=== PATIENT | female | born 1965 | race Caucasian/White ===

== ENCOUNTER 2017-09-17 10:49 | Inpatient (IN) | payer OTHER ==
[~2017-09-17] VITALS: Ht 172.7 cm; Wt 99.8 kg
[~2017-09-17 10:49] MED LIST: ALEVE220 MG PO; AMARYL2 MG PO; ASPIR 8181 MG PO; CLONAZEPAM 1 MG1 M1 PO; EFFIENT10 MG PO; GEMFIBROZIL 60600 MG PO; IBUPROFEN 800800 M1 PO; IMDUR 30 MG TAB30 M1 PO; LIPITOR 20 MG T20 M1 PO; LISINOPRIL20 MG PO; METFORMIN HCL500 MG PO; NEURONTIN 300300 M1 PO; PROBIOTIC250 MG PO
[2017-09-17 10:52] VITALS: BP 171/88
[2017-09-17] MEDS ORDERED: PLAVIX 75 MG TA75 MG PO (11:07)
[2017-09-17] MEDS ORDERED: GEMFIBROZIL 60600 MG PO (11:08)
[2017-09-17 11:09] LABS: ABSOLUTE BASOPHILS 0.1 thou/uL (0.0-0.2); ABSOLUTE EOSINOPHILS 0.2 thou/uL (0.0-0.7); ABSOLUTE LYMPHOCYTES 2.1 thou/uL (0.8-5.3); ABSOLUTE MONOCYTES 0.4 thou/uL (0.0-1.2); ABSOLUTE NEUTROPHILS 3.9 thou/uL (1.6-8.1); BASOPHILS 0.9 %; EOSINOPHILS 2.5 %; HEMATOCRIT 39.5 % (37.0-47.0); HEMOGLOBIN 12.8 gm/dL (12.0-15.0); LYMPHOCYTES 32.3 %; MCH 26.2 pg (26.0-34.0); MCHC 32.3 g/dL (28.0-37.0); MONOCYTES 5.5 %; NUCLEATED RBCS 0 /100WBC; PLATELET COUNT* 278 thou/uL (150-400); POLYS 58.8 %; RBC 4.88 mil/uL (4.20-5.00); WBC 6.6 thou/uL (4.0-11.0)
[2017-09-17] MEDS ORDERED: LIVALO2 MG PO (11:10)
[2017-09-17 11:18] LABS: ANION GAP 8 mmol/L (7-16); BUN 11 mg/dL (7-18); CHLORIDE 102 mmol/L (98-107); CO2 28 mmol/L (21-32); CREATININE 0.7 mg/dL (0.6-1.3); GLUCOSE 231 mg/dL (70-99); SODIUM 138 mmol/L (136-145)
--- NOTE | 2017-09-17 11:25 | NUR ---
2ND NITRO GIVEN PAIN STILL 01/24 BP 171/88
[2017-09-17 11:29] LABS: ALBUMIN 3.8 g/dL (3.4-5.0); ALKALINE PHOSPHATASE 68 U/L (46-116); LIPASE 174 U/L (73-393); MAGNESIUM 1.7 mg/dL (1.8-2.4); NT-PRO BRAIN NAT PEPTIDE 13 pg/mL (<300); SGOT 21 U/L (15-37); SGPT 28 U/L (30-65); TOTAL BILIRUBIN 0.2 mg/dL (<0.1-1.0); TOTAL PROTEIN 7.5 g/dL (6.4-8.2); TROPONIN-I LEVEL <0.06 ng/mL (<0.06)
[2017-09-17 13:07] VITALS: BP 143/89
--- NOTE | 2017-09-17 14:00 | NUR ---
RECEIVED REPORT FROM LULU IN ER. PT TRANSFERED UP TO TELE AT 1320. PT A&O X4. O2 SAT 97% ON 2L PER NC. REFRIGERATOR REPAIR TECHNICIAN PLACED AND TRACING SR. MORALES PRITNED AND PLACED IN CHART. IV SALINE LOCKED. ADMISSION HISTORY, EDUCATION, AND ASSESSMENT COMPLETED CHARTED. PT ORIENTED TO ROOM, BED, AND CALL LIGHT. PT ABLE TO BE UP AD BLAYNE TO THE BATHROOM, GAIT IS STEADY AND COORDINATED. PT REPORTS CHEST HEAVINESS 09/26. PT SEEN BY CARDIOLOGY AND HOSPITALIST. PLAN IS TO HAVE A CARDIAC CATH TOMORROW. PT INFORMED AND COMMUNICATES UNDERSTANDING. AT BEDSIDE UPON ADMIT BUT HAS SINCE LEFT. WILL RETURN WITH UPDATED MED LIST FOR CHART. LOW FALL RISK PRECAUTIONS IN PLACE. FALL AGREEMENT SIGNED. CALL LIGHT IS WITHIN REACH. WILL CONTINUE TO MONITOR.
[2017-09-17 15:52] VITALS: BP 119/84
--- NOTE | 2017-09-17 19:48 | NUR ---
VSS. O2 SAT REMAINS >90% ON ROOM AIR, TITRATED OFF 2L. GIFT BASKET PACKER IN PLACE TRACING SR WITH 1 DEGREE. PT TO HAVE CARDIAC CATH TOMORROW PER DR PLASCENCIA. PT TO BE NPO AFTER MIDNIGHT. IV SALINE LOCKED. PT STATES THAT CHEST PAIN HAS REMAINED A 1/10 SINCE ADMIT. NITRO PASTE ADMINISTERED. PT UP AD BLAYNE IN ROOM, AT BEDSIDE. PT EATING AND DRINKING WITHOUT ISSUE. LOW FALL RISK PRECAUTIONS IN PLACE. CALL LIGHT IS WITHIN REACH. HOURLY ROUNDING PERFORMED.
[2017-09-17 20:00] VITALS: BP 121/82
[2017-09-17] MEDS ORDERED: CELEXA10 MG PO (23:32)
[2017-09-18] VITALS (14 sets, daily range): BP systolic 103–120; BP diastolic 55–73
[2017-09-18 04:10] LABS: HEMATOCRIT 39.7 % (37.0-47.0); HEMOGLOBIN 12.8 gm/dL (12.0-15.0); MCHC 32.2 g/dL (28.0-37.0); MCV 80.8 fL (80.0-100.0); RBC 4.92 mil/uL (4.20-5.00); RDW-CV 16.9 % (10.5-14.5); WBC 7.3 thou/uL (4.0-11.0)
[2017-09-18 04:24] LABS: ANION GAP 8 mmol/L (7-16); BUN 10 mg/dL (7-18); CALCIUM 9.1 mg/dL (8.5-10.1); CHLORIDE 104 mmol/L (98-107); CHOLESTEROL 184 mg/dL (<200); CO2 29 mmol/L (21-32); CREATININE 0.6 mg/dL (0.6-1.3); GLUCOSE 114 mg/dL (70-99); HDL CHOLESTEROL 29 mg/dL (>40); LDL CHOLESTEROL 120 mg/dL (<100); MAGNESIUM 1.9 mg/dL (1.8-2.4); POTASSIUM 4.8 mmol/L (3.5-5.1); SODIUM 141 mmol/L (136-145); TC:HDL 6.3 Ratio (Not establshd); TRIGLYCERIDE 178 mg/dL (<150); VLDL 36 mg/dL (<40)
[2017-09-18 04:26] LABS: SERUM ASSESSMENT Clear
--- NOTE | 2017-09-18 05:05 | NUR ---
ASSUMED PT CARE AT 1930, PT IS A&OX4, PT TRACING NSR ON THE MONITOR, PT DENIES ANY PAIN OR NEEDS THIS SHIFT. PT IS ON RA SATTING MID TO HIGH 90'S. PER DAY RN PT IS TO HAVE A CARDIAC CATH TODAY, PT HAS BEEN NPO SINCE 0000. PT IS UP AD BLAYNE IN HER ROOM, STABLE ON HER FEET. BED IN LOW POSITION, CALL LIGHT IN REACH, HOURLY ROUNDING COMPLETED FOR PT SAFETY.
--- NOTE | 2017-09-18 09:19 | CON ---
[address] [address] CONSULTATION Name: BIANKA LIM Room: [address] IN ..#: [id number] Admission: 09/17/17 Attend Phys: Gautam Kennedy MD Discharge: Date of : 69 Report #: [id number] THIS REPORT FOR: //name// CC: Gautam Martin [facility] DATE OF SERVICE: 09/17/2017 HISTORY OF PRESENT ILLNESS: The patient is a 52-year-old white female who I was asked to see in the hospital today after she complained of chest pain. The patient initially saw my partner, Dr. Wheeler back in November 2015. At that time, she complained of chest pain and shortness of breath. He performed a cardiac catheterization that showed an 80% stenosis and a 75% stenosis in the LAD. The circumflex and right coronary had no significant disease. There was normal left ventricular function. He then placed 2 drug-eluting stents in the LAD. She tolerated the procedure well. She was actually discharged on Effient. She then presented again 6 months later in May 2016 with an episode of chest heaviness. Dr. Wheeler again saw her in consultation. He performed a repeat cardiac catheterization in May 2016. The results showed a 90% stenosis in the LAD between the 2 stents. The circumflex and right coronary had no significant disease. He then placed a new drug-eluting stent in the mid LAD. She has done well since that time. However, she notes for the past several days, she has had intermittent chest heaviness. It is not related to activity or meals. It currently radiates into her left arm. It can last for several minutes and goes away. There is no associated nausea, but it does make her somewhat diaphoretic and short of breath. She denies the pain being related to food. She has had no fever, cough, blood in her stool. She denied any trauma to her chest or rash. She denies exertional dyspnea, palpitations, syncope, or peripheral edema. She came to the emergency room today and was admitted. PAST MEDICAL HISTORY: Otherwise significant for hysterectomy, hernia repair, back surgery, hypertension, diabetes, and hyperlipidemia. CURRENT MEDICATIONS: Consists of aspirin, lisinopril, Imdur, Neurontin, metformin, Amaryl, gemfibrozil, clopidogrel, and pitavastatin. ALLERGIES: She has an intolerance to ACETAMINOPHEN. FAMILY HISTORY: Her father had coronary artery bypass surgery. SOCIAL HISTORY: She is . She and her live in [place], [place]. 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 [place] [address] CONSULTATION Name: BIANKA LIM Room: [address] IN [facility]#: [id number] Admission: 09/17/17 Attend Phys: Gautam Kennedy MD Discharge: Date of : 69 Report #: [id number] REVIEW OF SYSTEMS: She has had no history of stroke, asthma, or peptic ulcer disease. She has been diagnosed with fatty liver in the past based liver biopsy. No history of kidney disease, cancer, psychiatric illness, or chronic skin condition. PHYSICAL EXAMINATION: GENERAL: Revealed a middle-aged female, appeared in no acute distress. VITAL SIGNS: She had a blood pressure of 140/80, pulse is 80. She was afebrile. HEENT: She is anicteric. Conjunctivae are pink. Mucous membranes are moist. NECK: Veins do not appear distended. No carotid bruits. Neck is supple. CHEST: Clear to auscultation. HEART: Regular rate and rhythm. No murmur. ABDOMEN: Obese, soft, and nontender. EXTREMITIES: Had no edema. Dorsalis pedis pulse 1+ bilaterally. SKIN: Cool and dry. NEUROLOGIC: Nonfocal. LYMPH: No adenopathy. MUSCULOSKELETAL: No joint effusion. Her ECG in the emergency room today showed a normal sinus rhythm. There was no ST or T-wave change. Her workup in the emergency room, she had a portable chest x-ray that showed normal heart size, clear lung colon. LAB WORK: Sodium 138, creatinine 0.7, glucose 231. Liver function studies were normal. Troponin 0.06. Her hemoglobin 12.8. IMPRESSION AND RECOMMENDATIONS: 1. Possible unstable angina. Recommend repeat cardiac catheterization. 2. Hypertension. The patient is on an WAN inhibitor. 3. Hyperlipidemia. The patient is on a statin drug and gemfibrozil. <ELECTRONICALLY SIGNED> By: Edwin Britt MD, [facility] 09/18/17 0919 1350 1727Daviservando Britt MD, FAC /nt
--- NOTE | 2017-09-18 10:45 | NUR ---
ASSUMED CARE OF PATIENT THIS AM AT 0730. PATIENT IS ALERT AND ORIENTED X 4. SHE DENIES ANY CHEST PAIN THIS AM. PLANS FOR POSSIBLE CARDIAC CATH TODAY. TELE SHOWS NSR. WILL CONTINUE TO MONITOR PATIENT COMFORT. NO FALLS OR INJURY.
[2017-09-18 11:32] LABS: CALCIUM 9.5 mg/dL (8.5-10.1); CREATININE 0.7 mg/dL (0.6-1.3); POTASSIUM 4.2 mmol/L (3.5-5.1)
[2017-09-18 11:34] LABS: APTT 30.3 Seconds (25.0-31.3); INR 1.1; PROTIME 10.7 Seconds (9.20-11.50)
--- NOTE | 2017-09-18 13:09 | EKG ---
[place] [address] ELECTROCARDIOGRAM REPORT Name: BIANKA LIM Room: [address] ADM IN .R.#: [id number] Admission: 09/17/17 Attend Phys: Gautam Kennedy MD Discharge: Date of : 69 Report #: [id number] THIS REPORT FOR: //name// [facility] ED Test Date: 2017-09-17 Test Time: 10:53:33 Pat Name: BIANKA ILM Department: Room: [facility] Gender: F Cash Surrender Calculator: JAVAN : 1965 Requested By: Felix Erazo Order Number: [id number] MD: Eric Montes Measurements Intervals [place] Rate: 69 P: 0 [place]: 197 QRS: -9 QRSD: 96 T: 15 QT: 402 QTc: 425 Interpretive Statements Sinus rhythm Inferior infarct, old Compared to ECG 02/27/2017 12:39:38 First degree AV block no longer present Myocardial infarct finding still present Electronically Signed On 09-18-2017 13:09:01 FENCE SETTER by Eric Montes [email or web address] <ELECTRONICALLY SIGNED> By: Eric Montes MD, FAC 09/18/17 1309 1053 1053 Eric Montes MD, [facility] /EPI
--- NOTE | 2017-09-18 14:58 | NUR ---
MET WITH PT TO DISCUSS HOME SITUATION/DC PLANNING. PT LIVES WITH SPOUSE. SHE WORKS AND IS INDEPENDENT AND ACTIVE. USES NO EQUIPMENT AND HASN'T HAD HH. PT TO HAVE CARDIAC CATH TODAY. DENIES ANY DC NEEDS. WILL FOLLOW
--- NOTE | 2017-09-18 22:16 | NUR ---
AT SHIFT START PATIENT OFF UNIT REPORTEDLY AT [facility] PATIENT RETURNED TO UNIT AT APPROX 2034 TWO RNS TRANSPORTED RECEIVED REPORT AT BEDSIDE POST CATH VITALS ON HOURLY PORTION; 4X4 WITH TRANSPARENT DRESSING TO R GROIN C/D/I SITE WITHOUT S/SX OF WARMTH BRUISING OR REDNESS PATIENT AND SPOUSE DENY CONCERNS AND STATES UNDERSTANDING REGARDING MOBILITY RESTRICTIONS WILL CONTINUE TO MONITOR
[2017-09-19] VITALS (9 sets, daily range): BP systolic 106–125; BP diastolic 54–71
--- NOTE | 2017-09-19 09:36 | NUR ---
ASSUMED PT CARE AT 0730, FULL ASSESMENT DONE CHARTED.PT A/O X4, UP AD BLAYNE IN ROOM. PT DENIES CHEST PAIN. POST CATH 09/18/17. RIGHT GROIN SOFT, SMALL AMOUT BRUISING. PT EATING WELL, HOPING TO GO HOME TODAY. USING CALL LIGHT APPROPRIALTY. WILL CONTINUE WITH PLAN OF CARE.
[2017-09-19] MEDS ORDERED: ZETIA10 MG PO (10:29)
[2017-09-19] MEDS ORDERED: NITROSTAT0.4 M1 SUBLING (10:29)
--- NOTE | 2017-09-21 11:59 | CARD ---
[address] [address] CARDIAC CATH REPORT Name: LIM,CHANNIKA Ceja Room: [address] IN [facility].#: [id number] Admission: 09/17/17 Attend Phys: Gautam Kennedy MD Discharge: 09/19/17 Date of : 69 Report #: [id number] THIS REPORT FOR: //name// APPROVED REPORT Patient Details Patient Status: In-Patient Room #: 232 The patient is a 52 year-old female Event Personnel Eric Montes Partition Assembly Machine Operator, Sulma Lynn RN Financial Accounting Analyst, Yoan Farr (R) Monitor, Vicky Porter Holkins, John Pathology Lab Technician Procedures Performed CARON Place w/wo Plasty Single LAD Indication Unstable angina Risk Factors Hypercholesterolemia, Diabetes Previous Procedures/Diagnoses Previous PCI Admission/Lab Medications/Medications given during procedure Aspirin, Platelet Aff. Inhib., Heparin Unfract., , Procedure Narrative The patient was brought urgently to the Cardiac Catheterization Laboratory and was prepped and draped in a sterile manner. The right femoral was infiltrated with 1% Lidocaine subcutaneous anesthesia. A [place] 6 FR sheath was inserted into the Right Femoral Artery. Coronary angiography was performed using coronary diagnostic catheters. The right coronary system was accessed and visualized with a Diagnostic catheter. The left coronary system was accessed and visualized with a Diagnostic catheter. The left ventricle was accessed and visualized with a Diagnostic catheter. Left ventricular/Aortic Valve gradient assessed via catheter pullback. Pre-demployment femoral angiogram was performed . Hemostasis was obtained with manual pressure following sheath removal without any complications. The patient tolerated the procedure well and there were no complications associated with the procedure. [place] [address] CARDIAC CATH REPORT Name: BIANKA LIM Room: [address]#: [id number] Admission: 09/17/17 Attend Phys: Gautam Kennedy MD Discharge: 09/19/17 Date of : 69 Report #: [id number] Intraoperative Conscious Sedation Sedation start time: 16:07 Case end Time: 15:23 Fentanyl 100 mcg Versed 3 mg Fluoro Time: 15.4 minutes Dose: DAP [id number] cGycm2 2309 mGy Contrast Type and Amount: Visipaque 305 ml Diagnostic Cath Left Main 0% narrowing LAD Patent proximal and mid LAD stents with 75% narrowing between the stented portions with diffuse 70-90% apical LAD narrowing Circumflex 30% mid with 40% distal narrowing Right Coronary Dominant vessel with proximal catheter-induced spasm remitting after infusion of intracoronary nitroglycerin; there was 30% distal right coronary narrowing Left Ventriculography The left ventricle is normal in size with normal contractility. The left ventricular ejection fraction is estimated to be 60%. There is no mitral insufficiency. IVUS Anticoagulation was achieved with Heparin. Fractional Flow [place] was performed on the mid LAD vessel. A 6 Welsh XB LAD 3.5 Guide Catheter was used to engage the left ostium. A 014 FloWire Interventional Guidewire was used. IVUS Findings Fractional flow reserve was 0.77 distal to the unstented mid LAD segment after adenosine provocation. Hemodynamics The aortic pressure is 130/74 mmHg with a mean of 78 mmHg. The left ventricular pressure is 114/0 mmHg with a mean of mmHg. The left ventricular end diastolic pressure is 4 mmHg. PCI Technique Lesion Anticoagulation was achieved with Heparin. Patient was preloaded with Heparin IV 7000 units. Percutaneous coronary intervention was performed on the mid left anterior descending artery segment. A 6F XB LAD 3.5 Guide Catheter was used to engage the ostium. A Pressure Wire 175cm Interventional Guidewire was used [place] [address] CARDIAC CATH REPORT Name: BIANKA LIM Room: [address]#: [id number] Admission: 09/17/17 Attend Phys: Gautam Kennedy MD Discharge: 09/19/17 Date of : 69 Report #: [id number] BALLOON DILATION A Balloon catheter Trek RX 2.5 X 12 was inserted and inflated up to 10.00atm for 13seconds. Repeat angiography revealed the following post-dilatation results: 20% residual narrowing. STENT DEPLOYMENT A drug-eluting stent Xience Alpine RX 2.5X15 was inserted and inflated up to 10.00atm for 15seconds. Additional Inflation: 12.00atm for 12seconds. Additional Inflation: 14.00atm for 14seconds. Final angiography reveals 0 % stenosis with YOSI 3 flow. PCI Technique Lesion The lesion stenosis prior to intervention was mid LAD% with YOSI 6 Welsh XB LAD 3.5 flow. A left Guide Catheter was used to engage the 014 FloWire ostium. BALLOON DILATION A Balloon catheter Fractional flow reserve was 0.77 distal to the unstented mid LAD segment after adenosine provocation. was inserted and inflated up to humaira for seconds. Conclusion #1 significant coronary artery disease characterized by the following : A widely patent proximal and mid LAD stents with 75% narrowing between the stented portions with diffuse 70-90% apical LAD disease, B 30% mid with 40% distal circumflex narrowing, this being a nondominant vessel, C large dominant right coronary artery with proximal catheter-induced spasm remitting after infusion of intracoronary nitroglycerin, #2 normal left ventricular systolic function, estimated ejection fraction being 60%, #3 fractional flow reserve calculated pertinent to the mid LAD stenosis with a minimum value of .77 after adenosine provocation, suggesting hemodynamic significance, #4 successful percutaneous coronary intervention with deployment of drug-eluting stent at the site of 75% mid LAD stenosis with 0% [place] [address] CARDIAC CATH REPORT Name: BIANKA LIM Room: [address]#: [id number] Admission: 09/17/17 Attend Phys: Gautam Kennedy MD Discharge: 09/19/17 Date of : 69 Report #: [id number] residual involving stent deployment and YOSI-3 flow the distal vessel. Recommendations Cardiac Risk Reduction Program Aggressive Medical Therapy Medications Administered Aspirin (any) Clopidogrel <ELECTRONICALLY SIGNED> By: Moe Wheeler MD, FAC 09/21/17 1159 1159 1159Moe Wheeler MD, FAC /INF
== END 2017-09-19 12:20 | disposition home or self-care (01) | DRG 287 ==
LOC: M.ERS 10:49 → M.2W 12:23 → M.TBA-ER 12:23 → M.2W 13:17
PROVIDERS: Emergency Medicine Emergency Medical Services; Internal Medicine Cardiovascular Disease; ADMIT Internal Medicine
PROC: 4A023N8 Measurement of Cardiac Sampling and Pressure, Bilateral, Percutaneous Approach (ICD-10-PCS; principal; 2017-09-18)
PROC: B2151ZZ Fluoroscopy of Left Heart using Low Osmolar Contrast (ICD-10-PCS; principal; 2017-09-18)
PROC: B2111ZZ Fluoroscopy of Multiple Coronary Arteries using Low Osmolar Contrast (ICD-10-PCS; principal; 2017-09-18)
DX: I25.110 Atherosclerotic heart disease of native coronary artery with unstable angina pectoris (principal); I10 Essential (primary) hypertension; E11.9 Type 2 diabetes mellitus without complications; E78.00 Pure hypercholesterolemia, unspecified; E66.9 Obesity, unspecified; Z68.33 Body mass index [BMI] 33.0-33.9, adult; Z95.5 Presence of coronary angioplasty implant and graft; Z98.891 History of uterine scar from previous surgery; Z90.710 Acquired absence of both cervix and uterus; Z79.02 Long term (current) use of antithrombotics/antiplatelets; Z79.82 Long term (current) use of aspirin; Z79.84 Long term (current) use of oral hypoglycemic drugs; Z79.899 Other long term (current) drug therapy; Z88.8 Allergy status to other drugs, medicaments and biological substances; Z82.49 Family history of ischemic heart disease and other diseases of the circulatory system

== ENCOUNTER 2017-12-11 07:39 | Observation (INO) | payer OTHER ==
[~2017-12-11] VITALS: Ht 172.7 cm; Wt 99.3 kg
[~2017-12-11 07:39] MED LIST changes: +CELEXA10 MG PO; +LIVALO2 MG PO; +NITROSTAT0.4 M1 SUBLING; +PLAVIX 75 MG TA75 MG PO; +ZETIA10 MG PO
[2017-12-11 07:44] VITALS: BP 129/82
[2017-12-11 08:18] LABS: ABSOLUTE EOSINOPHILS 0.2 thou/uL (0.0-0.7); ABSOLUTE LYMPHOCYTES 1.8 thou/uL (0.8-5.3); ABSOLUTE MONOCYTES 0.4 thou/uL (0.0-1.2); ABSOLUTE NEUTROPHILS 3.3 thou/uL (1.6-8.1); BASOPHILS 0.9 %; EOSINOPHILS 3.9 %; HEMATOCRIT 38.1 % (37.0-47.0); LYMPHOCYTES 30.5 %; MCH 28.2 pg (26.0-34.0); MCHC 34.2 g/dL (28.0-37.0); MCV 82.2 fL (80.0-100.0); MONOCYTES 7.3 %; MPV 8.3 fl. (7.2-11.1); NUCLEATED RBCS 0 /100WBC; PLATELET COUNT* 280 thou/uL (150-400); POLYS 57.4 %; RBC 4.63 mil/uL (4.20-5.00); RDW-CV 16.4 % (10.5-14.5); WBC 5.7 thou/uL (4.0-11.0)
[2017-12-11 08:28] LABS: CREATININE 0.7 mg/dL (0.6-1.3); POTASSIUM 4.3 mmol/L (3.5-5.1)
[2017-12-11 08:31] LABS: APTT 28.7 Seconds (25.0-31.3); INR 1.1; PROTIME 10.5 Seconds (9.20-11.50)
[2017-12-11 08:39] LABS: ALBUMIN 3.9 g/dL (3.4-5.0); TOTAL BILIRUBIN 0.2 mg/dL (<0.1-1.0); TOTAL PROTEIN 7.3 g/dL (6.4-8.2)
--- NOTE | 2017-12-11 08:47 | NUR ---
UPON RETRIEVING NITROGLYCERIN FROM MYXIS, THERE WAS DISCREPANCY AND DRAWER WOULD NOT OPEN. PHARMACY WAS CALLED AND IS RESTOCKING DRAWER CURRENTLY.
--- NOTE | 2017-12-11 08:54 | NUR ---
PT REQUESTED TO USE RESTROOM. NON-SKID SOCKS GIVEN TO PT.
[2017-12-11 09:57] LABS: URINE BILIRUBIN NEGATIVE (Negative); URINE BLOOD NEGATIVE (Negative); URINE CLARITY CLEAR; URINE COLOR YELLOW; URINE GLUCOSE-RANDOM NEGATIVE (Negative); URINE KETONES NEGATIVE (Negative); URINE LEUKOCYTES-REFLEX TRACE (Negative); URINE NITRITE-REFLEX NEGATIVE (Negative); URINE PROTEIN NEGATIVE (Negative); URINE UROBILINOGEN 0.2 E.U./dl (0.2-1.0)
[2017-12-11 10:08] LABS: BACTERIA-REFLEX 1-9 Few /HPF (None Seen); CASTS None Seen /LPF (None Seen); CRYSTALS None Seen /LPF (None Seen); MUCUS 0-3 Light strn/LPF (None Seen); SQUAMOUS 0-3 Few /LPF (0-3); URINE RBC 0-2 Rare /HPF (0-2); URINE WBC-REFLEX 0-5 Rare /HPF (0-5)
[2017-12-11 10:57] VITALS: BP 121/87
[2017-12-11 11:10] VITALS: BP 128/85
--- NOTE | 2017-12-11 15:26 | EKG ---
[place] [address] ELECTROCARDIOGRAM REPORT Name: LIMBIANKA Marcial Room: [address] M.R.#: [id number] Admission: 12/11/17 Attend Phys: Elian Myers MD Discharge: Date of : 69 Report #: [id number] THIS REPORT FOR: //name// [facility] ED Test Date: 2017-12-11 Test Time: 07:44:27 Pat Name: BIANKA LIM Department: Room: [facility] Gender: F Assistant Facility Manager: Kyle EWING : 1965 Requested By: Traci Potts Order Number: [id number] MD: Jasper Chaudhary Measurements Intervals [place] Rate: 74 P: 22 [place]: 194 QRS: -24 QRSD: 88 T: 17 QT: 395 QTc: 439 Interpretive Statements Sinus rhythm Inferior infarct, old Compared to ECG 09/17/2017 10:53:33 No significant changes Electronically Signed On 12-11-2017 15:25:55 CDT by Jasper Chaudhary [email or web address] <ELECTRONICALLY SIGNED> By: Jasper Chaudhary MD, FACC 12/11/17 1525 0744 0744 Jasper Chaudhary MD, FAC /EPI
[2017-12-11 16:00] VITALS: BP 141/95
--- NOTE | 2017-12-11 17:31 | NUR ---
PT ADMITTED TO ROOM 219 VIA CART FROM ED AT APPROXIMATELY 1110 WITH STABLE ANGINA WITH CAD. REPORT RECEIVED FROM SARAH OROPEZA RN. ADMISSION ASSESSMENT AND HISTORY COMPLETED. REFER TO CHARTING. PHARMACY ENTERED. HOME MEDICATIONS RECONCILED. SEPSIS SCREENING COMPLETED. PT SCREENED NEGATIVE. MEDICARE FORMS SIGNED AND PLACED IN CHART. CARDIOLOGY CONSULT IN PLACE. YOMI STATON, CARDIOLOGY DESKIDDING MACHINE OPERATOR HERE TO SEE PT. ORDERS RECEIVED FOR STRESS TEST. PT HAD RESTING PART OF STRESS TEST THIS AFTERNOON. PT TO HAVE 2ND PART OF STRESS TEST TOMORROW 12/12. NPO AFTER MIDNIGHT. NO BETA BLOCKERS OR NITRATES. PT STATES HER CHEST PAIN IS NOW AT A 1/10 AND WAS RELIEVED BY NITRO AND ASPIRIN. PT STATES SHE HAD HER LAST STENT 3 MONTHS AGO. DAUGHTER AT BEDSIDE THROUGHOUT AFTERNOON. PT A&0X4. TRACING SR ON THE EXTRUDER. ON RA SAT 100%. DENIES ANY SHORTNESS OF BREATH. LUNG SOUNDS ARE CLEAR. PT UP AD BLAYNE IN ROOM. PT IS NOT A FALL RISK. PT STATES SHE HAS NOTICED BLOOD IN HER STOOLS RECENTLY BUT BELIEVES IT MAY BE RELATED TO HEMORRHOIDS. PT STATES HER LAST BM WAS THIS AM AND HER STOOLS ARE FORMED. PT INSTRUCTED TO LET RN KNOW IF SHE HAS A BM SO RN CAN ASSESS. TROPONINS NEGATIVE X3. SKIN INTACT. PT ON 2GM SODIUM DIET. PT HAD CXR TODAY-NEGATIVE. REFER TO RESULTS. MEDICATIONS PER NOV. PT REPOSITIONS SELF. HOURLY ROUNDING OBSERVED. BED IN LOW POSITION. CALL LIGHT WITHIN REACH. WILL CONTINUE PLAN OF CARE.
[2017-12-11 19:30] VITALS: BP 127/86
[2017-12-12] VITALS: BP 133/87
--- NOTE | 2017-12-12 03:52 | NUR ---
ASSUMED CARE AT 1930, ASSESSMENT CHARTED. PATIENT ALERT/ORIENTED X4, SITTING UP IN RECLINER WATCHING TV. UP AD BLAYNE IN ROOM. DENIES PAIN, CHEST PAIN OR NEEDS. MEDS PER MAR. INSTRUCTED OF BEING NPO AFTER MIDNIGHT FOR AM STRESS TEST. REFUSING SCD'S. CALL LIGHT WITHIN REACH, ENCOURAGED TO CALL FOR NEEDS.
[2017-12-12 04:00] VITALS: BP 131/73
[2017-12-12 04:34] LABS: ABSOLUTE BASOPHILS 0.1 thou/uL (0.0-0.2); ABSOLUTE EOSINOPHILS 0.2 thou/uL (0.0-0.7); ABSOLUTE LYMPHOCYTES 2.3 thou/uL (0.8-5.3); ABSOLUTE MONOCYTES 0.6 thou/uL (0.0-1.2); ABSOLUTE NEUTROPHILS 3.4 thou/uL (1.6-8.1); BASOPHILS 0.9 %; EOSINOPHILS 3.3 %; HEMATOCRIT 39.2 % (37.0-47.0); HEMOGLOBIN 13.2 gm/dL (12.0-15.0); LYMPHOCYTES 34.8 %; MCH 28.2 pg (26.0-34.0); MCHC 33.8 g/dL (28.0-37.0); MCV 83.5 fL (80.0-100.0); MONOCYTES 9.4 %; MPV 8.3 fl. (7.2-11.1); NUCLEATED RBCS 0 /100WBC; PLATELET COUNT* 253 thou/uL (150-400); POLYS 51.6 %; RBC 4.69 mil/uL (4.20-5.00); RDW-CV 16.1 % (10.5-14.5); WBC 6.6 thou/uL (4.0-11.0)
[2017-12-12 05:00] LABS: CALCIUM 9.6 mg/dL (8.5-10.1); CREATININE 0.6 mg/dL (0.6-1.3); POTASSIUM 5.2 mmol/L (3.5-5.1)
--- NOTE | 2017-12-12 06:57 | NUR ---
NO ACUTE CHANGES THROUGH THE NIGHT. REMAINS NPO. WILL MONITOR.
[2017-12-12 08:16] VITALS: BP 119/71
--- NOTE | 2017-12-12 09:55 | NUR ---
CM ASSESSMENT: Pt is A&O. Resides at home with her and kids. Independent with ADLs, continues to work outside of the home. No DME. No hx of HH or SNF. Plan to have stress test today, dc to home if negative. No needs anticipated.
[2017-12-12 12:20] VITALS: BP 121/71
[2017-12-12 16:05] VITALS: BP 119/61
--- NOTE | 2017-12-12 16:33 | CARDNUC ---
[place] [address] CARDIAC NUCLEAR IMAGING REPORT Name: LIMBIANKA Room: [address] Kenny Goodman#: [id number] Admission: 12/11/17 Attend Phys: Elian Myers, Discharge: Date of : 69 Date of Service: 12/12/17 1632 Report #: [id number] THIS REPORT FOR: //name// APPROVED REPORT Study performed: 12/11/2017 11:43:00 Exam: Nuclear Stress Test Indication: Chest pain, CAD s/p PCI Patient Location: In-Patient Room #: 218 Stress Tech: Argenis Almeida Stress Nurse: Shraddha Diaz RN NM Tech:GABI Elias Ht: 5 ft 8 in Wt: 219 lbs BSA: 2.12 m2 BMI: 33.29 Medical History Medical History: CAD s/p stent, Diabetes, HTN, Hyperlipidemia Medications: ezetimibe, gemfibrozil, hydralazine, isosorbide, lisinopril, plavix, asa Allergies: acetaminophen Cardiac Risk Factors: DM, HTN, Hyperlipidemia, FHX of CAD Previous Cardiac Procedures: PCI Exercise History: Sedentary Meds Held (24 hrs): isosorbide Stress Test Details Stress Test: Pharmacologic stress testing performed using 0.4 mg of regadenoson per 5 mL given IV over 10 seconds. Reason for pharmacologic stress test: physical limitation. HR Resting HR: 83 bpm Max Heart Rate (APMHR): 170 bpm Max HR Achieved: 125 bpm Target HR (85% APMHR): 144 bpm % of APMHR: 73 Recovery HR: 93 bpm HR response to stress: Normal HR response to stress BP Resting BP: 127/90 mmHg Max BP: 123/74 [place] [address] CARDIAC NUCLEAR IMAGING REPORT Name: BIANKA LIM Room: [address]#: [id number] Admission: 12/11/17 Attend Phys: Elian Myers, Discharge: Date of : 69 Date of Service: 12/12/17 1632 Report #: [id number] BP response to stress: Normal blood pressure response to stress. ECG Resting ECG: Sinus Rhythm Stress ECG: Sinus Rhythm ST Change: None Recovery ECG: Sinus Rhythm Recovery ST Change: None Clinical Reason for Termination: Completed protocol Stress Symptoms: chest tightness Exercise duration: 4 min 0 sec Exercise capacity: 2.3 METs Nurse Comments Patient complained of chest tightness post lexiscan injection, rated 4-5, resolved in recovery. Stress ECG Conclusion negative for ischemia NM EXAM: Myocardial Perfusion REST/STRESS Imaging Protocol: Rest Tc-99m/Stress Tc-99m 2 days Resting Data Rest SPECT myocardial perfusion imaging was performed in supine position 30 minutes following the intravenous injection of 40.3 mCi of Tc-99m Sestamibi. Time of rest injection: 1415 Date: 12/11/2017 Time of rest imagin The images were gated to evaluate regional wall motion and calculate left ventricular ejection fraction. Administration Route: IV Pharmacologic Stress Pharmacologic stress test was performed by injecting Regadenoson 0.4 mg IV push followed by the intravenous injection of 39.5 mCi of Tc-99m Sestamibi. Time of stress injection: 1040 Date: 12/12/2017 Time of stress imagin Administration Route: IV Gated Stress SPECT was performed 40 minutes after stress injection. The images were gated to evaluate regional wall motion and calculate left ventricular [place] [address] CARDIAC NUCLEAR IMAGING REPORT Name: BIANKA LIM Room: [address]#: [id number] Admission: 12/11/17 Attend Phys: Elian Myers, Discharge: Date of : 69 Date of Service: 12/12/17 1632 Report #: [id number] Prone imaging was performed. Study Quality Study: Good Artifact: No artifact Study Data At rest, the left ventricular ejection fraction was 67%.. Post stress, the left ventricular ejection was 72%.. SSS: 5 SRS: 3 SDS: 2 TID = 0.81. Perfusion Review of rest data reveals normal perfusion, without perfusion defects.Imaging obtained following vasodilator stress demonstrate a similar, uniform uptake of tracer without defects. Prone imaging was normal. LVEDV is normal.No segental wall motion abnormality seen. Wall Motion normal in all segments Nuclear Conclusion ECG Findings: negative for ischemia Clinical Findings: non-diagnostic Nuclear Findings: negative for ischemia Exercise Capacity: not assessed Left Ventricular Function: normal Risk Study: low Normal perfusion nuclear stress test <Conclusion> negative for ischemia <ELECTRONICALLY SIGNED> By: Eric Montes MD, FACC 12/12/17 1632 163 163 Eric Montes MD, FACC /INF
[2017-12-12 16:44] VITALS: BP 119/61
--- NOTE | 2017-12-12 16:51 | NUR ---
ASSUMED CARE OF PATIENT AFTER REPORT THIS MORNING. PATIENT AWAKE, ALERT, AND ORIENTED APPROPRIATELY. PHYSICAL ASSESSMENT COMPLETED AND CHARTED. NO COMPLAINTS OF PAIN THIS SHIFT. GIVEN SCHEDULED MEDICATIONS THAT WOULD NOT INTERFERE WITH STRESS TEST TODAY, SEE EMAR FOR DOCUMENTATION. VITAL SIGNS STABLE. OXYGEN SATURATION WITHIN NORMAL LIMITS ON ROOM AIR. PATIENT HAS BEEN UP AD BLAYNE. RECEIVED ORDERS FROM PHYSICIAN THAT IF STRESS TEST WAS NEGATIVE AND CLEARE BY CARDIOLOGY THAT PATIENT COULD DISCHARGE. CARDIOLOGY CALLED AND STATED TEST WAS NEGATIVE AND PATIENT WAS OK FOR DISCHARGE. PATIENT AWARE AND COMPLIANT. REFUSED DINNER INSULIN DOSE STATING SHE WOULD TAKE CARE OF IT WHEN SHE GETS HOME. DENIES NEEDS AT THIS TIME. CALL LIGHT WITHIN REACH. NURSING WILL CONTINUE TO MONITOR.
--- NOTE | 2017-12-12 17:18 | NUR ---
DISCHARGE PAPERWORK COMPLETED AND SIGNED BY ALL APPROPRIATE PARTIES. IV DISCONTINUED. PATIENT DISCHARGED AT 1715. ESCORTED TO FRONT DOOR BY DIGITAL MARKETER.
== END 2017-12-12 17:24 | disposition home or self-care (01) ==
LOC: M.ERS 07:39 → M.2W 09:26 → M.TBA-ER 09:26 → M.2W 11:08
PROVIDERS: Personal Emergency Response Attendant; ADMIT Internal Medicine
DX: R07.89 Other chest pain (principal); I25.110 Atherosclerotic heart disease of native coronary artery with unstable angina pectoris; E11.9 Type 2 diabetes mellitus without complications; Z79.02 Long term (current) use of antithrombotics/antiplatelets; I10 Essential (primary) hypertension; E66.9 Obesity, unspecified; E78.5 Hyperlipidemia, unspecified; E78.00 Pure hypercholesterolemia, unspecified; K76.0 Fatty (change of) liver, not elsewhere classified; Z98.890 Other specified postprocedural states; Z95.5 Presence of coronary angioplasty implant and graft

== ENCOUNTER 2018-02-07 10:40 | Emergency (ER) | payer OTHER ==
[~2018-02-07] VITALS: Ht 172.7 cm; Wt 95.3 kg
[2018-02-07 10:45] VITALS: BP 127/74
[2018-02-07] MEDS ORDERED: JARDIANCE10 MG PO (10:48)
[2018-02-07] MEDS ORDERED: OMEPRAZOLE 20 M20 M1 PO (10:48)
[2018-02-07] MEDS ORDERED: APPLE CIDER VI500 MG PO (10:48)
[2018-02-07 11:14] LABS: ABSOLUTE EOSINOPHILS 0.2 thou/uL (0.0-0.7); ABSOLUTE LYMPHOCYTES 1.9 thou/uL (0.8-5.3); ABSOLUTE MONOCYTES 0.4 thou/uL (0.0-1.2); ABSOLUTE NEUTROPHILS 3.4 thou/uL (1.6-8.1); BASOPHILS 0.7 %; EOSINOPHILS 3.6 %; HEMATOCRIT 37.4 % (37.0-47.0); HEMOGLOBIN 12.3 gm/dL (12.0-15.0); LYMPHOCYTES 32.5 %; MCH 27.8 pg (26.0-34.0); MCV 84.4 fL (80.0-100.0); MONOCYTES 6.6 %; MPV 7.9 fl. (7.2-11.1); NUCLEATED RBCS 0 /100WBC; PLATELET COUNT* 244 thou/uL (150-400); POLYS 56.6 %; RBC 4.43 mil/uL (4.20-5.00); RDW-CV 15.2 % (10.5-14.5)
[2018-02-07 11:20] LABS: INR 1.5; PROTIME 14.2 Seconds (9.20-11.50)
[2018-02-07 11:23] LABS: ANION GAP 8 mmol/L (7-16); BUN 12 mg/dL (7-18); CALCIUM 8.4 mg/dL (8.5-10.1); CHLORIDE 105 mmol/L (98-107); CO2 27 mmol/L (21-32); CREATININE 0.6 mg/dL (0.6-1.3); GLUCOSE 86 mg/dL (70-99); POTASSIUM 3.9 mmol/L (3.5-5.1); SODIUM 140 mmol/L (136-145)
[2018-02-07 11:34] LABS: ALBUMIN 3.8 g/dL (3.4-5.0); ALKALINE PHOSPHATASE 71 U/L (46-116); SGOT 44 U/L (15-37); SGPT 63 U/L (30-65); TOTAL BILIRUBIN 0.2 mg/dL (<0.1-1.0); TOTAL PROTEIN 6.9 g/dL (6.4-8.2); TROPONIN-I LEVEL <0.06 ng/mL (<0.06)
--- NOTE | 2018-02-07 12:32 | NUR ---
PRATIK NOTIFIED UPON PT RETURN FROM CT. PT WAS STILL CONNECTED TO PORTABLE MONITOR UPON RETURN. PRATIK NOTIFIED OF PT METFORMIN INSTRUCTION SHEET PLACED IN PT BLACK ROOM 11 FILE ZULETA
[2018-02-07 13:56] VITALS: BP 132/81
--- NOTE | 2018-02-08 17:06 | EKG ---
[place] [address] ELECTROCARDIOGRAM REPORT Name: BIANKA LIM Room: [facility]#: [id number] Admission: 02/07/18 Attend Phys: Discharge: 02/07/18 Date of : 69 Report #: [id number] THIS REPORT FOR: //name// [facility] ED Test Date: 2018-02-07 Test Time: 11:24:22 Pat Name: BIANKA LIM Department: Room: Gender: F Matrix Drier Tender: Kyle COBOS : 1965 Requested By: Felix Erazo Order Number: [id number] MD: Eric Montes Measurements Intervals [place] Rate: 66 P: [place]: QRS: -14 QRSD: 96 T: 12 QT: 418 QTc: 438 Interpretive Statements Junctional rhythm Inferior infarct, old Compared to ECG 12/11/2017 07:44:27 Junctional rhythm now present Sinus rhythm no longer present Myocardial infarct finding still present Electronically Signed On 02-08-2018 17:06:05 CDT by Eric Montes [email or web address] <ELECTRONICALLY SIGNED> By: Eric Montes MD, [facility] 02/08/18 1706 1124 1124 Eric Montes MD, [facility] /EPI
== END 2018-02-07 13:45 | disposition left against medical advice (07) ==
LOC: M.ERS 10:40 → M.TBA-ER 12:04 → M.ERS 13:45
PROVIDERS: Emergency Medicine Emergency Medical Services
DX: R51 Headache (principal); R20.0 Anesthesia of skin; I10 Essential (primary) hypertension; E11.9 Type 2 diabetes mellitus without complications; I25.10 Atherosclerotic heart disease of native coronary artery without angina pectoris; Z88.1 Allergy status to other antibiotic agents

== ENCOUNTER 2018-02-18 16:32 | Emergency (ER) | payer OTHER ==
[~2018-02-18] VITALS: Ht 172.7 cm; Wt 97.5 kg
[~2018-02-18 16:32] MED LIST changes: +APPLE CIDER VI500 MG PO; +JARDIANCE10 MG PO; +OMEPRAZOLE 20 M20 M1 PO
[2018-02-18 17:07] LABS: ABSOLUTE BASOPHILS 0.1 thou/uL (0.0-0.2); ABSOLUTE EOSINOPHILS 0.2 thou/uL (0.0-0.7); ABSOLUTE LYMPHOCYTES 2.3 thou/uL (0.8-5.3); ABSOLUTE MONOCYTES 0.5 thou/uL (0.0-1.2); ABSOLUTE NEUTROPHILS 3.4 thou/uL (1.6-8.1); BASOPHILS 0.9 %; EOSINOPHILS 2.9 %; HEMATOCRIT 38.1 % (37.0-47.0); HEMOGLOBIN 12.7 gm/dL (12.0-15.0); LYMPHOCYTES 35.6 %; MCH 27.9 pg (26.0-34.0); MCHC 33.3 g/dL (28.0-37.0); MCV 83.6 fL (80.0-100.0); MONOCYTES 7.9 %; MPV 8.1 fl. (7.2-11.1); NUCLEATED RBCS 0 /100WBC; PLATELET COUNT* 239 thou/uL (150-400); POLYS 52.7 %; RBC 4.56 mil/uL (4.20-5.00); WBC 6.4 thou/uL (4.0-11.0)
[2018-02-18 17:15] LABS: ANION GAP 11 mmol/L (7-16); BUN 17 mg/dL (7-18); CHLORIDE 102 mmol/L (98-107); CO2 27 mmol/L (21-32); CREATININE 0.8 mg/dL (0.6-1.3); GLUCOSE 119 mg/dL (70-99); INR 1.1; PROTIME 10.4 Seconds (9.20-11.50); SODIUM 140 mmol/L (136-145)
[2018-02-18 17:26] LABS: ALBUMIN 3.9 g/dL (3.4-5.0); ALKALINE PHOSPHATASE 71 U/L (46-116); LIPASE 221 U/L (73-393); NT-PRO BRAIN NAT PEPTIDE 29 pg/mL (<300); SGOT 29 U/L (15-37); SGPT 32 U/L (30-65); TOTAL BILIRUBIN 0.3 mg/dL (<0.1-1.0); TOTAL PROTEIN 7.6 g/dL (6.4-8.2); TROPONIN-I LEVEL <0.06 ng/mL (<0.06)
[2018-02-18 19:17] VITALS: BP 00/000
--- NOTE | 2018-02-19 13:57 | EKG ---
[place] [address] ELECTROCARDIOGRAM REPORT Name: BIANKA LIM Room: [facility]#: [id number] Admission: 02/18/18 Attend Phys: Discharge: 02/18/18 Date of : [birth year] Report #: [id number] THIS REPORT FOR: //name// [facility] ED Test Date: 2018-02-18 Test Time: 16:37:31 Pat Name: BIANKA LIM Department: Room: Gender: F Office Copy Selector: : 1965 Requested By: Marcos Gerardo Order Number: [id number] MD: Moe Wheeler Measurements Intervals [place] Rate: 62 P: 7 [place]: 198 QRS: -15 QRSD: 97 T: 20 QT: 431 QTc: 438 Interpretive Statements Sinus rhythm Inferior infarct, old Baseline wander in lead(s) V6 Compared to ECG 02/07/2018 11:24:22 Myocardial infarct finding still present Electronically Signed On 02-19-2018 13:57:13 CDT by Moe Wheeler [email or web address] <ELECTRONICALLY SIGNED> By: Moe Wheeler MD, [facility] 02/19/18 1357 1637 1637 Moe Wheeler MD, [facility] /EPI
== END 2018-02-18 19:18 | disposition still patient (30) ==
LOC: M.ERS 16:32
PROVIDERS: Emergency Medicine
DX: R07.9 Chest pain, unspecified (principal); E11.9 Type 2 diabetes mellitus without complications; I10 Essential (primary) hypertension; I25.10 Atherosclerotic heart disease of native coronary artery without angina pectoris; E78.00 Pure hypercholesterolemia, unspecified; Z88.6 Allergy status to analgesic agent; Z98.890 Other specified postprocedural states

== ENCOUNTER 2018-08-04 10:32 | Inpatient (IN) | payer OTHER ==
[~2018-08-04] VITALS: Ht 172.7 cm; Wt 103.4 kg
--- NOTE | ~2018-08-04 | CON ---
[address] [address] CONSULTATION Name: LIMYAZMIN QUINTEROLourdes Ceja Room: [address] DeniseRMarcio#: [id number] Admission: 08/04/18 Attend Phys: Mayr Cruz MD Discharge: Date of : [birth year] Report #: [id number] THIS REPORT FOR: //name// CC: Mary Martin NP DATE OF SERVICE: 08/04/2018 HISTORY OF PRESENT ILLNESS: The patient is a 52-year-old white female who I was asked to see in the hospital today after she had an episode of chest pain. The patient has an extensive history of heart disease. She initially presented in 11/2015 with chest pain. She saw Dr. Wheeler. Cardiac catheterization showed an 80% stenosis and a 75% stenosis in the LAD. He placed two drug-eluting stents in the LAD. She then presented in 05/[address] Wheeler performed a repeat cardiac catheterization in 05/2016 that showed a 90% stenosis in the LAD between the two stents. He then placed a new drug-eluting stent in the mid LAD. She then did well until 09/2017 when she presented here to [facility] with chest pain. Dr. Wheeler performed a repeat cardiac catheterization that again showed a high-grade stenosis in the LAD between the stents as well as a 90% narrowing of the apical LAD. The circumflex and the right coronary had no significant stenosis. There was normal left ventricular function. He then placed a drug-eluting stent in the LAD. She has been on aspirin and Plavix since that time. She was admitted here to [facility] in November with chest pain. She saw my nurse practitioner Deanne Hawkins. She underwent a nuclear stress test that showed an ejection fraction of 72% with no evidence of ischemia. She has done well since that time, although she does not exercise on a regular basis. Yesterday, she was at home, she felt some intermittent burning in her chest. Today, she again had some heaviness in the chest that went into her left shoulder and her left arm felt numb. She felt short of breath and nauseated. She took up to three nitroglycerin and got some relief. She was brought to the hospital and admitted for further evaluation and treatment. She denied the pain being related to food. She had no recent belching or blood in the stool. She had no diaphoresis. She denies exertional dyspnea or edema. She does note her heart rate will increase, but she has had no syncope. She has had no trauma to her chest or rash. PAST MEDICAL HISTORY: Significant for hysterectomy, back surgery, hernia repair, hypertension, diabetes and hyperlipidemia. MEDICATIONS: Consists of aspirin, lisinopril, Imdur, glimepiride, gemfibrozil, Plavix, Livalo, Zetia and metformin. ALLERGIES: SHE HAS A PREVIOUS INTOLERANCE TO TOPROL. FAMILY HISTORY: [place] [address] CONSULTATION Name: LIMBIANKA Room: [address] Maxine#: [id number] Admission: 08/04/18 Attend Phys: Mary Cruz MD Discharge: Date of : 69 Report #: [id number] SOCIAL HISTORY: She is . She and live in [place], [place]. 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 No smoking or alcohol abuse. REVIEW OF SYSTEMS: She has had no history of stroke, asthma or peptic ulcer disease. She has been diagnosed with hemochromatosis and a fatty liver in the past. No kidney disease. No cancer. No psychiatric illness. No chronic skin condition. PHYSICAL EXAMINATION: GENERAL: Revealed a large middle-aged female who appeared in no distress, lying in bed. VITAL SIGNS: Blood pressure 120/80, pulse 80 and she is afebrile. HEENT: She was anicteric, conjunctiva pink. Mucous membranes are moist. NECK: Neck veins are difficult to assess due to obesity. No carotid bruits. CHEST: Clear to auscultation. CARDIAC: Regular rate and rhythm. ABDOMEN: Obese. EXTREMITIES: Had no edema. Dorsalis pedis pulse 2+ bilaterally. SKIN: Warm and dry. NEUROLOGIC: Nonfocal. RADIOLOGICAL DATA: ECG showed a sinus rhythm with no significant ST or T-wave change. Her chest x-ray shows normal heart size and clear lung colon. LABORATORY DATA: Sodium 137 and creatinine 0.8. Troponin is 0.06. White blood cell count 6.6 and hemoglobin 13.1. IMPRESSION AND RECOMMENDATIONS: 1. Unstable angina. Recommend cardiac catheterization. 2. Hypertension. The patient is on an WAN inhibitor. She could not tolerate beta gayle in the past. 3. Diabetes. 4. Hyperlipidemia. The patient is on a statin drug. By: [id number] Britt MD, FACC /nt
[2018-08-04 10:36] VITALS: BP 124/85
[2018-08-04 10:47] LABS: ABSOLUTE EOSINOPHILS 0.2 thou/uL (0.0-0.7); ABSOLUTE LYMPHOCYTES 2.1 thou/uL (0.8-5.3); ABSOLUTE MONOCYTES 0.4 thou/uL (0.0-1.2); ABSOLUTE NEUTROPHILS 3.9 thou/uL (1.6-8.1); BASOPHILS 0.7 %; EOSINOPHILS 2.7 %; HEMATOCRIT 39.3 % (37.0-47.0); HEMOGLOBIN 13.1 gm/dL (12.0-15.0); LYMPHOCYTES 31.4 %; MCH 28.2 pg (26.0-34.0); MCHC 33.3 g/dL (28.0-37.0); MCV 84.5 fL (80.0-100.0); MONOCYTES 5.5 %; MPV 8.2 fl. (7.2-11.1); NUCLEATED RBCS 0 /100WBC; PLATELET COUNT* 252 thou/uL (150-400); POLYS 59.7 %; RBC 4.66 mil/uL (4.20-5.00); RDW-CV 15.1 % (10.5-14.5); WBC 6.6 thou/uL (4.0-11.0)
[2018-08-04 10:55] LABS: POTASSIUM 4.1 mmol/L (3.5-5.1); SODIUM 137 mmol/L (136-145)
[2018-08-04 10:58] LABS: APTT 29.7 Seconds (25.0-31.3); PROTIME 10.7 Seconds (9.20-11.50)
[2018-08-04 11:02] LABS: ANION GAP 13 mmol/L (7-16); BUN 11 mg/dL (7-18); CALCIUM 9.2 mg/dL (8.5-10.1); CHLORIDE 100 mmol/L (98-107); CO2 24 mmol/L (21-32); CREATININE 0.8 mg/dL (0.6-1.3); GLUCOSE 222 mg/dL (70-99)
[2018-08-04 11:15] LABS: ALKALINE PHOSPHATASE 76 U/L (46-116); LIPASE 203 U/L (73-393); NT-PRO BRAIN NAT PEPTIDE 29 pg/mL (<300); SGOT 55 U/L (15-37); SGPT 52 U/L (30-65); TOTAL BILIRUBIN 0.3 mg/dL (<0.1-1.0); TOTAL PROTEIN 7.4 g/dL (6.4-8.2); TROPONIN-I LEVEL <0.06 ng/mL (<0.06)
[2018-08-04 12:25] VITALS: BP 114/69
[2018-08-04 12:28] VITALS: BP 115/72
[2018-08-04 15:35] VITALS: BP 102/64
--- NOTE | 2018-08-04 17:38 | NUR ---
PT ADMITTED TO ROOM 219 VIA CART FROM ED AT APPROX 1228. REPORT RECEIVED FROM SEVERO. PT ORIENTED TO ROOM AND CALL LIGHT. ADMISSION ASSESSMENT AND HISTORY COMPLETED REFER TO CHARTING. PT ALERT AND ORIENTED X4. PT TRACING NORMAL SINUS RHYTHM ON THE MONITOR. PT IS ON ROOM AIR. SHE UP AD BLAYNE. CARDIOLOGY CONSULT. PT NPO AFTER MIDNIGHT FOR HEART CATH TOMORROW. IV PATENT AND SALINE LOCKED. ACCU CHECK AC AND HS. PT DENIES ANY CHEST PAIN OR SHORTNESS OF BREATH. NITRO PASTE IN PLACE ON LEFT CHEST. PT RECEIVING LOVENOX INJECTIONS Q 12 HRS. PT CAN REPOSITION SELF. HOURLY ROUNDING PERFORMED FOR PT SAFETY. CALL LIGHT WITHIN REACH. WILL CONTINUE WITH PLAN OF CARE.
[2018-08-04 20:00] VITALS: BP 126/62
[2018-08-05] VITALS (14 sets, daily range): BP systolic 112–144; BP diastolic 59–91
[2018-08-05 05:16] LABS: ANION GAP 7 mmol/L (7-16); BUN 9 mg/dL (7-18); CALCIUM 9.2 mg/dL (8.5-10.1); CHLORIDE 102 mmol/L (98-107); CHOLESTEROL 157 mg/dL (<200); CO2 31 mmol/L (21-32); CREATININE 0.7 mg/dL (0.6-1.3); GLUCOSE 116 mg/dL (70-99); HDL CHOLESTEROL 29 mg/dL (>40); LDL CHOLESTEROL 81 mg/dL (<100); MAGNESIUM 2.1 mg/dL (1.8-2.4); POTASSIUM 4.8 mmol/L (3.5-5.1); SODIUM 140 mmol/L (136-145); TC:HDL 5.4 Ratio (Not establshd); TRIGLYCERIDE 237 mg/dL (<150); VLDL 47 mg/dL (<40)
[2018-08-05 05:21] LABS: SERUM ASSESSMENT CLEAR
--- NOTE | 2018-08-05 07:27 | NUR ---
ASSUMED CARE OF PT AT 1930. VSS. KINDERGARTEN PARAPROFESSIONAL IN PLACE. NO COMPLAINTS OF PAIN. UP AD BLAYNE AND ON RA. ASSESSMENT COMPLETED CHARTED. DISCUSSED PLAN OF CARE FOR EVENING. NPO SINCE MIDNIGHT. CARDIAC CATH TODAY. BED LOCKED IN THE LOWEST POSITION AND CALL LIGHT W//I REACH. HOURLY ROUNDING COMPLETED. ALL NEEDS MET. NURSING WILL CONTINUE TO MONITOR.
--- NOTE | 2018-08-05 07:30 | NUR ---
ASSUMED CARE OF PT ASSESSED AND DOCUMENTED. PT IS ON CARDIAC MONITER TRACING SR HR 71. PT IS A&O WITH NO C/O PAIN. PT IS ON ROOM AIR. VSS WNL. PT IS AFEBRILE. 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 BED IN LOW POSITION CALL LIGHT IS IN REACH. WM.
--- NOTE | 2018-08-05 11:31 | NUR ---
Pt is A&O. Resides at home with her . Independent and active, continues to work outside of the home. No DME. No hx of HH or SNF. Supportive family that is involved in POC, son in room. Pt scheduled to have a cath today. No needs anticipated at dc. Following.
--- NOTE | 2018-08-05 11:39 | EKG ---
[place] [address] ELECTROCARDIOGRAM REPORT Name: LIMBIANKA Room: [address] M.R.#: [id number] Admission: 08/04/18 Attend Phys: Mary Cruz MD Discharge: Date of : 69 Report #: [id number] THIS REPORT FOR: //name// [facility] ED Test Date: 2018-08-04 Test Time: 10:35:27 Pat Name: BIANKA LIM Department: Room: [facility] Gender: F Rn Heart: ZULEIKA : 1965 Requested By: Traci Potts Order Number: [id number] MD: Edwin Britt Measurements Intervals [place] Rate: 81 P: 30 NV: 191 QRS: -19 QRSD: 98 T: 15 QT: 381 QTc: 443 Interpretive Statements Sinus rhythm Inferior infarct, old Baseline wander in lead(s) V4 Compared to ECG 02/18/2018 16:37:31 No significant changes Electronically Signed On 08-05-2018 11:39:00 SUSTAINMENT LOGISTICS ANALYST by Edwin Britt [email or web address] <ELECTRONICALLY SIGNED> By: Edwin Britt MD, FACC 08/05/18 1139 1035 1035 Edwin Britt MD, [facility] /EPI
--- NOTE | 2018-08-05 15:34 | NUR ---
spoke with jamie in [employer] wood [employer] labourer she got ahold of cardio they said pt can go to let hospitalist know.
--- NOTE | 2018-08-05 15:39 | NUR ---
CALLED MAKE SURE CARDIO HAS NO MED CHANGES. IF NOT PT CAN GO.
--- NOTE | 2018-08-05 16:28 | NUR ---
PT D/C'D TO HOME. EDUCATION GIVEN RE FOLLOW-UPS, MEDICATIONS, AND DRS ORDERS. D/C'D IV AND CARDIAC MONITER. ALL BELONGINGS PACKED UP AND LEFT WITH PT ACCOMPANIED BY STAFF AND PTS .
--- NOTE | 2018-08-06 16:36 | CARD ---
[address] [address] CARDIAC CATH REPORT Name: BIANKA LIM Marcial Room: [address] IN [facility]#: [id number] Admission: 08/04/18 Attend Phys: Mary Cruz MD Discharge: 08/05/18 Date of : [birth year] Report #: [id number] THIS REPORT FOR: //name// APPROVED REPORT Study performed: 08/05/2018 11:22:03 Patient Details Patient Status: In-Patient Room #: 219 The patient is a 52 year-old female Event Personnel Edwin Britt Farm Equipment Maintenance Supervisor, Rosalia Soriano RN Dairy Manager, Yoan Farr (R) Monitor, Gautam Grier Scrub, Love Urbano RTR Scrub Procedures Performed Left Heart Cath w/or w/o Coronaries Indication Chest pain Risk Factors Hypercholesterolemia, Diabetes Previous Procedures/Diagnoses Previous PCI Admission/Lab Medications/Medications given during procedure Heparin Unfract. Procedure Narrative The patient was brought electively to the Cardiac Catheterization Laboratory and was prepped and draped in a sterile manner. The right wrist was infiltrated with 1% Lidocaine subcutaneous anesthesia. A Slender Glidesheath sheath was inserted into the right radial artery. Coronary angiography was performed using coronary diagnostic catheters. The right coronary system was accessed and visualized with a Diagnostic 3DRC catheter. The left coronary system was accessed and visualized with a Diagnostic JL4 catheter. The left ventricle was accessed and visualized with a jr4 catheter. Left ventricular/Aortic Valve gradient assessed via catheter pullback. Left ventriculogram was performed in GARCIA projection. Closure device was deployed with a 6 Fr Vasc-Band Reg 24cm. The patient tolerated the procedure well and there were no complications associated with [place] [address] CARDIAC CATH REPORT Name: LIM,BIANKA Ceja Room: [address]#: [id number] Admission: 08/04/18 Attend Phys: Mary Cruz MD Discharge: 08/05/18 Date of : 69 Report #: [id number] no hematoma. because of tortuous aorta, glidewire required to cross av. Intraoperative Conscious Sedation Sedation start time: 12:04 Case end Time: 12:33 Fentanyl 50 mcg Versed 2 mg Fluoro Time: 7.0 minutes Dose: DAP 92215 cGycm2 1048 mGy Contrast Type and Amount: Omnipaque 110 ml Coronary Angiography The patient's coronary anatomy is right dominant. Diagnostic Cath Left Main 0% stenosis LAD stent in mid lad with 0% stenosis. apical lad had 30% stenosis OM1 50% proximal stenosis Right Coronary 40% ostial stenosis R PDA 30% mid stenosis Left Ventriculography The left ventricle is normal in size with normal contractility. The left ventricular ejection fraction is estimated to be 60-65%. Left ventricular wall motion abnormalities are not present. There is no mitral insufficiency. Hemodynamics The aortic pressure is 110/65 mmHg with a mean of 84 mmHg. The left ventricular pressure is 120/12 mmHg with a mean of mmHg. The left ventricular end diastolic pressure is 13 mmHg. There was no gradient across the aortic valve upon pullback. Pullback from the left ventricle to the aorta revealed no gradient across the aortic valve. Conclusion 1. no restenosis of stent in mid lad Recommendations Aggressive Medical Therapy <ELECTRONICALLY SIGNED> By: Edwin Britt MD, FACC 08/06/18 1636 1636 1636Daben Britt MD, FACC /INF
== END 2018-08-05 16:30 | disposition home or self-care (01) | DRG 287 ==
LOC: M.ERS 10:32 → M.2W 11:46 → M.TBA-ER 11:46 → M.2W 12:28
PROVIDERS: Internal Medicine; Personal Emergency Response Attendant; ADMIT Internal Medicine
DX: I25.110 Atherosclerotic heart disease of native coronary artery with unstable angina pectoris (principal); E11.9 Type 2 diabetes mellitus without complications; I10 Essential (primary) hypertension; K21.9 Gastro-esophageal reflux disease without esophagitis; E83.119 Hemochromatosis, unspecified; E78.00 Pure hypercholesterolemia, unspecified; E78.5 Hyperlipidemia, unspecified; Z95.5 Presence of coronary angioplasty implant and graft; Z98.891 History of uterine scar from previous surgery; Z90.710 Acquired absence of both cervix and uterus; Z98.51 Tubal ligation status; Z79.82 Long term (current) use of aspirin; Z79.84 Long term (current) use of oral hypoglycemic drugs; Z79.899 Other long term (current) drug therapy; Z88.6 Allergy status to analgesic agent; Z82.49 Family history of ischemic heart disease and other diseases of the circulatory system

== ENCOUNTER 2019-04-30 07:24 | Observation (INO) | payer OTHER, BC ==
[~2019-04-30] VITALS: Ht 172.7 cm; Wt 101.6 kg
[2019-04-30] VITALS (13 sets, daily range): BP systolic 101–125; BP diastolic 52–78
--- NOTE | ~2019-04-30 | H ---
[address] [address] HISTORY AND PHYSICAL Name: BIANKA LIM Room: [address] Maxine#: [id number] Admission: 04/30/19 Attend Phys: Moe Wheeler MD, Discharge: 05/01/19 Date of : [birth year] Report #: [id number] THIS REPORT FOR: //name// Please refer to the History and Physical performed in the physician's office. By: [id number] Records Staff EUSEBIA /JAVAN
[2019-04-30 08:25] LABS: HEMATOCRIT 36.9 % (37.0-47.0); HEMOGLOBIN 12.6 gm/dL (12.0-15.0); MCH 27.9 pg (26.0-34.0); MCHC 34.1 g/dL (28.0-37.0); MCV 81.9 fL (80.0-100.0); MPV 8.8 fl. (7.2-11.1); RBC 4.51 mil/uL (4.20-5.00); RDW-CV 14.8 % (10.5-14.5); WBC 4.9 thou/uL (4.0-11.0)
[2019-04-30 08:36] LABS: INR 1.1; PROTIME 11.1 Seconds (9.20-11.50)
[2019-04-30 08:43] LABS: ALBUMIN 3.7 g/dL (3.4-5.0); ALKALINE PHOSPHATASE 91 U/L (46-116); ANION GAP 8 mmol/L (7-16); BUN 12 mg/dL (7-18); CALCIUM 8.6 mg/dL (8.5-10.1); CHLORIDE 101 mmol/L (98-107); CHOLESTEROL 161 mg/dL (<200); CO2 28 mmol/L (21-32); CREATININE 0.8 mg/dL (0.6-1.3); GLUCOSE 219 mg/dL (70-99); HDL CHOLESTEROL 32 mg/dL (>40); LDL CHOLESTEROL 105 mg/dL (<100); POTASSIUM 4.4 mmol/L (3.5-5.1); SGOT 94 U/L (15-37); SGPT 75 U/L (30-65); SODIUM 137 mmol/L (136-145); TOTAL BILIRUBIN 0.3 mg/dL (<0.1-1.0); TOTAL PROTEIN 7.4 g/dL (6.4-8.2); TRIGLYCERIDE 122 mg/dL (<150); VLDL 24 mg/dL (<40)
[2019-04-30 08:44] LABS: SERUM ASSESSMENT Clear
[2019-04-30] MEDS ORDERED: TOPROL XL25 MG PO (10:32)
[2019-04-30] MEDS ORDERED: LINZESS72 MCG PO (10:35)
[2019-05-01] VITALS: BP 122/61
[2019-05-01 04:00] VITALS: BP 125/67
[2019-05-01 04:26] LABS: HEMATOCRIT 36.4 % (37.0-47.0); HEMOGLOBIN 11.9 gm/dL (12.0-15.0); MCH 27.4 pg (26.0-34.0); MCHC 32.6 g/dL (28.0-37.0); MCV 84.1 fL (80.0-100.0); MPV 8.5 fl. (7.2-11.1); RBC 4.33 mil/uL (4.20-5.00); RDW-CV 14.1 % (10.5-14.5); WBC 4.3 thou/uL (4.0-11.0)
[2019-05-01 04:41] LABS: ALBUMIN 3.3 g/dL (3.4-5.0); ALKALINE PHOSPHATASE 80 U/L (46-116); ANION GAP 6 mmol/L (7-16); BUN 10 mg/dL (7-18); CALCIUM 8.6 mg/dL (8.5-10.1); CHLORIDE 104 mmol/L (98-107); CO2 29 mmol/L (21-32); CREATININE 0.6 mg/dL (0.6-1.3); GLUCOSE 147 mg/dL (70-99); POTASSIUM 4.4 mmol/L (3.5-5.1); SGOT 74 U/L (15-37); SGPT 67 U/L (30-65); SODIUM 139 mmol/L (136-145); TOTAL BILIRUBIN 0.4 mg/dL (<0.1-1.0); TOTAL PROTEIN 6.8 g/dL (6.4-8.2); TROPONIN-I LEVEL <0.06 ng/mL (<0.06)
[2019-05-01 08:00] VITALS: BP 143/76
--- NOTE | 2019-05-01 09:18 | EKG ---
[place] [address] ELECTROCARDIOGRAM REPORT Name: BIANKA LIM Room: [address] M.R.#: [id number] Admission: 04/30/19 Attend Phys: Moe Wheeler MD, Discharge: Date of : [birth year] Report #: [id number] THIS REPORT FOR: //name// [facility] Test Date: 2019-04-30 Test Time: 08:20:33 Pat Name: BIANKA LIM Department: Room: [facility] Gender: F Bottom Hoop Driver: : 1965 Requested By: Moe Wheeler Order Number: [id number] Brandon MD: Jasper Chaudhary Measurements Intervals [place] Rate: 69 P: [place]: QRS: -10 QRSD: 94 T: 18 QT: 407 QTc: 436 Interpretive Statements Sinus rhythm Low voltage, precordial leads Inferior infarct, old Compared to ECG 08/04/2018 10:35:27 No significant changes noted Electronically Signed On 05-01-2019 9:17:53 CDT by Jasper Chaudhary [email or web address] <ELECTRONICALLY SIGNED> By: Jasper Chaudhary MD, [facility] 05/01/19 0917 9 9 Jasper Chaudhary MD, [facility] /EPI
--- NOTE | 2019-05-01 09:24 | EKG ---
[place] [address] ELECTROCARDIOGRAM REPORT Name: BIANKA LIM Room: [address] M.R.#: [id number] Admission: 04/30/19 Attend Phys: Moe Wheeler MD, Discharge: Date of : [birth year] Report #: [id number] THIS REPORT FOR: //name// [facility] Test Date: 2019-04-30 Test Time: 11:33:04 Pat Name: BIANKA LIM Department: Room: [facility] Gender: F Fudger: : 1965 Requested By: Moe Wheeler Order Number: [id number] Brandon MD: Jasper Chaudhary Measurements Intervals [place] Rate: 61 P: 12 [place]: 212 QRS: -4 QRSD: 98 T: 17 QT: 453 QTc: 457 Interpretive Statements Sinus rhythm Prolonged [place] interval Inferior infarct age indeterminate Low voltage, precordial leads Compared to ECG 08/04/2018 10:35:27 First degree AV block now present Low QRS voltage now present Electronically Signed On 05-01-2019 9:24:26 CDT by Jasper Chaudhary [email or web address] <ELECTRONICALLY SIGNED> By: Jasper Chaudhary MD, FACC 05/01/19 0924 1133 1133 Jasper Chaudhary MD, [facility] /EPI
--- NOTE | 2019-05-01 09:27 | EKG ---
[place] [address] ELECTROCARDIOGRAM REPORT Name: LIM,CHVENITAMARINA Ceja Room: [address] M.R.#: [id number] Admission: 04/30/19 Attend Phys: Moe Wheeler MD, Discharge: Date of : [birth year] Report #: [id number] THIS REPORT FOR: //name// [facility] Test Date: 2019-05-01 Test Time: 07:53:51 Pat Name: BIANKA LIM Department: Room: [facility] Gender: F Director Drug Safety: : 1965 Requested By: Moe Wheeler Order Number: [id number] Reading MD: Jasper Chaudhary Measurements Intervals [place] Rate: 57 P: 10 MD: 224 QRS: -6 QRSD: 96 T: 15 QT: 457 QTc: 445 Interpretive Statements Sinus rhythm Prolonged [place] interval Inferior infarct age indeterminate Low voltage, precordial leads Compared to ECG 08/04/2018 10:35:27 First degree AV block now present Low QRS voltage now present Electronically Signed On 05-01-2019 9:26:57 CDT by Jasper Chaudhary [email or web address] <ELECTRONICALLY SIGNED> By: Jasper Chaudhary MD, FACC 05/01/19 0926 0753 0753 Jasper Chaudhary MD, [facility] /EPI
[2019-05-01 09:37] VITALS: BP 112/62
[2019-05-01] MEDS ORDERED: EFFIENT10 MG PO (11:18)
--- NOTE | 2019-05-01 11:19 | CARD ---
[address] [address] CARDIAC CATH REPORT Name: BIANKA LIM Room: [address] Kenny Goodman#: [id number] Admission: 04/30/19 Attend Phys: Moe Wheeler MD, Discharge: Date of : [birth year] Report #: [id number] THIS REPORT FOR: //name// APPROVED REPORT Study performed: 04/30/2019 09:05:40 Patient Details Patient Status: Observation Room #: The patient is a 53 year-old female Event Personnel Moe Wheeler Inductor Tester, Sulma Lynn RN Acid Pump Operator, Dana Summers RTR Monitor, Aj Tapia CAPTURE MANAGER Monitor, Yoan Farr (R) Scrub Procedures Performed Art Access - R femoral artery* Left Heart Cath w/or w/o Coronaries [id number] [facility] w/wo Plasty Single LAD [id number]; angioplasty atherotomy/atherectomy and stenting of the distal LAD Indication Unstable angina Risk Factors Hypercholesterolemia, Hypertension, Diabetes Previous Procedures/Diagnoses Previous PCI Admission/Lab Medications/Medications given during procedure Midazolam (Versed) IV 2 mg, Fentanyl IV 25 mcg, Lidocaine Subcut 14 ml, Midazolam (Versed) IV 1 mg, Nitroglycerin IA 300 mcg, Angiomax IV 15 mg per kg, Angiomax Drip IV 35.3 ml per hr, Nitroglycerin IA 250 mcg, Effient PO 60 mg Procedure Narrative The patient was brought electively to the Cardiac Catheterization Laboratory and was prepped and draped in a sterile manner. The right femoral was infiltrated with 2% Lidocaine subcutaneous anesthesia. A [place] 6 FR sheath was inserted into the right femoral artery. Coronary angiography was performed using coronary diagnostic catheters. The right coronary system was accessed [place] [address] CARDIAC CATH REPORT Name: BIANKA LIM Room: [address] M..#: [id number] Admission: 04/30/19 Attend Phys: Moe Wheeler MD, Discharge: Date of : 69 Report #: [id number] a 3DRC 6fr catheter. The left coronary system was accessed and visualized with a 6F JL4 catheter. The left ventricle was accessed and visualized with a 6F PIGTAIL catheter. Left ventricular/Aortic Valve gradient assessed via catheter pullback. Left ventriculogram was performed in GARCIA projection. Pre-demployment femoral angiogram was performed . Closure device was deployed with a Fr Mynx 6Fr/7Fr. The patient tolerated the procedure well and there were no complications associated with the procedure. There was no hematoma. Intraoperative Conscious Sedation Sedation start time: 09:40 Case end Time: 10:56 Fentanyl 50 mcg Fluoro Time: 12.5 minutes Dose: DAP 169506 cGycm2 3284 mGy Contrast Type and Amount: Visipaque 410 ml Coronary Angiography The patient's coronary anatomy is right dominant. Diagnostic Cath Left Main 0% narrowing LAD 30% proximal LAD narrowing with 90% distal in-stent restenosis and tandem 75%. Apical LAD narrowings Circumflex Nondominant vessel with 30% distal narrowing Right Coronary Dominant vessel with 0% narrowing Left Ventriculography The left ventricle is normal in size with normal contractility. The left ventricular ejection fraction is estimated to be 55%. Left ventricular wall motion abnormalities are present. There is no mitral insufficiency. Mild anteroapical hypokinesis is noted Hemodynamics The aortic pressure is 96/36 mmHg with a mean of 59 mmHg. The left ventricular pressure is 99/2 mmHg with a mean of mmHg. The left ventricular end diastolic pressure is 3 mmHg. There was no gradient across the aortic valve upon pullback. PCI Technique Lesion Anticoagulation was achieved with Angiomax. Patient was preloaded with Angiomax IV 15 mg per kg. Percutaneous coronary intervention was performed on the distal left anterior descending [place] [address] CARDIAC CATH REPORT Name: BIANKA LIM Room: [address] M.R.#: [id number] Admission: 04/30/19 Attend Phys: Moe Wheeler MD, Discharge: Date of : 69 Report #: [id number] lesion stenosis prior to intervention was 90% with YOSI flow. A 6FR XB 3.5 100CM Guide Catheter was used to engage the ostium. A IG: ProwaterFlex 180CM Interventional Guidewire was used to cross the lesion. BALLOON DILATION A Balloon catheter NC Trek RX 2.0 X 8 , 2.0x10 angiosculpt was inserted and inflated up to 14.00,12atm for 14, 15seconds. Additional Inflation: 18.00atm for 14seconds. STENT DEPLOYMENT A drug-eluting stent [place] RX Stent 2.0X8mm, 2.0x12 was inserted and inflated up to 12.00atm for 10seconds. Additional Inflation: 15.00atm for 7seconds. POST STENT DEPLOYMENT BALLOON DILATION A Balloon catheter 2.0 x 8 NC trek was inserted and inflated up to 18atm for 12seconds. Final angiography reveals 10 % stenosis with YOSI 3 flow. COMMENTS I perform angioplasty, atherotomy/atherectomy with ultimate deployment of 2 drug-eluting stents at the site of 90% distal LAD in-stent restenosis Conclusion #1 significant coronary artery disease characterized by the following: A 30% proximal LAD narrowing with 90% distal LAD in-stent restenosis and tandem 75% apical LAD narrowings B 30% narrowing of the distal portion nondominant circumflex C 0 percent narrowing of the left main and dominant right coronary artery #2 normal global left ventricular systolic function, estimate ejection fraction being 55% with subtle anteroapical hypokinesis #3 normal left-sided hemodynamic study #4 successful angioplasty atherectomy and stenting of the distal LAD with 10% residual narrowing and YOSI-3 flow [place] [address] CARDIAC CATH REPORT Name: LIM,ROBSONVENITAMARINA Ceja Room: [address] M.R.#: [id number] Admission: 04/30/19 Attend Phys: Moe Wheeler MD, Discharge: Date of : 69 Report #: [id number] Recommendations Cardiac Risk Reduction Program Aggressive Medical Therapy Medications Administered Aspirin (any) Prasugrel Diagnostic Cath Approved by: Moe Wheeler MD Date/Time: 05/01/2019 11:15:33 <ELECTRONICALLY SIGNED> By: Moe Wheeler MD, FACC 05/01/19 1119 1119Moe Wheeler MD, FACC /INF
[2019-05-01] MEDS ORDERED: PRALUENT P75 MG/1 ML SUBQ (11:23)
[2019-05-01 11:25] VITALS: BP 112/62
--- NOTE | 2019-05-02 09:53 | D ---
[address] [address] DISCHARGE SUMMARY Name: BIANKA ILM Room: [address] Kenny Goodman#: [id number] Admission: 04/30/19 Attend Phys: Moe Wheeler MD, Discharge: 05/01/19 Date of : 69 Report #: [id number] THIS REPORT FOR: //name// [facility] DATE OF SERVICE: 05/01/2019 FINAL DISCHARGE DIAGNOSES: 1. Unstable angina. 2. Coronary artery disease. 3. Status post percutaneous coronary intervention of the left anterior descending coronary artery. 4. Hypertension. 5. Type 2 diabetes. 6. Hypercholesterolemia. 7. Exogenous obesity. PROCEDURES: 04/30/2019 - left heart catheterization, left ventriculography, selective coronary arteriography and atherectomy, angioplasty, and stenting of the distal left anterior descending coronary artery. HOSPITAL COURSE: The patient is a very pleasant 53-year-old female with aggressive and premature coronary artery disease. She has undergone multiple prior percutaneous coronary interventions. Recently, she has demonstrated a pattern of chest discomfort consistent with angina following an unstable course. She has underlying hypertension, hyperlipidemia, diabetes and weight excess. In this context, she underwent cardiac catheterization on 04/30/2019 which revealed no significant stenosis of the left main, circumflex or right coronary artery. She demonstrated 90% mid to distal in-stent restenosis of the LAD with tandem 75% very apical LAD stenosis. I performed angioplasty, arthrotomy/atherectomy with an AngioSculpt 20 x 10 balloon inflated to 12 atmospheres with subsequent deployment of 20 x 12 and 20 x 8 Anderson drug-eluting stents with a 10% residual narrowing and YOSI 3 flow of the distal vessel. The patient did well post-procedurally and ambulated in the hallways without difficulty with good hemostasis at the right femoral site of catheterization. LABORATORY DATA: On 05/01/2019 revealed sodium 139, potassium 4.4, BUN 10, creatinine 0.6. Hemoglobin 11.9, white blood cell count 4300 with 165,000 platelets. Troponin less than 0.06. Cholesterol 161, triglycerides 122, HDL 32, LDL 105. DISCHARGE MEDICATIONS: The patient was [place] [address] DISCHARGE SUMMARY Name: BIANKA LIM Room: [address] Kenny Goodman#: [id number] Admission: 04/30/19 Attend Phys: Moe Wheeler MD, Discharge: 05/01/19 Date of : 69 Report #: [id number] medications: Aspirin 81 mg daily, cider vinegar 500 mg b.i.d., citalopram 10 mg daily, gabapentin 300 mg t.i.d., glimepiride 2 mg daily, isosorbide mononitrate 30 mg daily, Linzess 72 mcg daily, lisinopril 20 mg daily, metformin 500 mg b.i.d. to be resumed on 05/02/2019, metoprolol succinate 25 mg daily, omeprazole 20 mg daily, prasugrel or Effient 10 mg daily with a 60 mg loading dose given periprocedurally, and she was instituted on therapy with Praluent 75 mg subcutaneously every 2 weeks with the first dose given on 05/01/2019. She also has a supply of sublingual nitroglycerin to utilize on a p.r.n. basis. Therefore, the patient is discharged to home in stable condition on the aforementioned medications with followup in 4-6 weeks. <ELECTRONICALLY SIGNED> By: Moe Wheeler MD, [facility] 05/02/19 0953 0920 [id number] Wheeler MD, FACC /nt
== END 2019-05-01 11:45 | disposition home or self-care (01) ==
LOC: M.CL 07:24 → M.TBA-CV 11:17 → M.2W 11:17
PROVIDERS: ADMIT Internal Medicine
DX: I25.110 Atherosclerotic heart disease of native coronary artery with unstable angina pectoris (principal); I10 Essential (primary) hypertension; E11.9 Type 2 diabetes mellitus without complications; E78.5 Hyperlipidemia, unspecified; E66.09 Other obesity due to excess calories

== ENCOUNTER → 2019-05-22 | Outpatient (CLI) | payer OTHER, BC ==
[~2019-05-22] MED LIST changes: +LINZESS72 MCG PO; +PRALUENT P75 MG/1 ML SUBQ; +TOPROL XL25 MG PO
[2019-05-22 06:39] LABS: CHOLESTEROL 164 mg/dL (<200); HDL CHOLESTEROL 31 mg/dL (>40); LDL CHOLESTEROL 75 mg/dL (<100); TC:HDL 5.3 Ratio (Not establshd); TRIGLYCERIDE 291 mg/dL (<150); VLDL 58 mg/dL (<40)
[2019-05-22 06:44] LABS: SERUM ASSESSMENT Clear
== END ==
LOC: M.LAB 06:06
PROVIDERS: Nurse Practitioner
DX: E78.2 Mixed hyperlipidemia (principal)

== ENCOUNTER → 2019-10-27 | Outpatient (CLI) | payer OTHER ==
[2019-10-27 06:30] LABS: CHOLESTEROL 193 mg/dL (<200); HDL CHOLESTEROL 28 mg/dL (>40); LDL CHOLESTEROL 93 mg/dL (<100); TC:HDL 6.9 Ratio (Not establshd); TRIGLYCERIDE 364 mg/dL (<150); VLDL 73 mg/dL (<40)
[2019-10-27 06:41] LABS: SERUM ASSESSMENT Clear
== END ==
LOC: M.LAB 05:51
PROVIDERS: Internal Medicine
DX: E78.2 Mixed hyperlipidemia (principal)

== ENCOUNTER 2021-05-11 07:06 | Observation (INO) | payer OTHER ==
[~2021-05-11] VITALS: Ht 172.7 cm; Wt 99.3 kg
[2021-05-11] VITALS (14 sets, daily range): BP systolic 100–141; BP diastolic 64–85
--- NOTE | ~2021-05-11 | H ---
[address] [address] HISTORY AND PHYSICAL Name: BIANKA LIM Room: [address] Maxine#: [id number] Admission: 05/11/21 Attend Phys: Moe Wheeler MD, Discharge: 05/12/21 Date of : 69 Report #: [id number] THIS REPORT FOR: cc: Stephanie Medina Samantha RNP [facility],Medical Records Staff ~ Please refer to the History and Physical performed in the physician's office. By: [id number] Records Staff TELLO /JAVAN
[~2021-05-11 07:06] MED LIST changes: +AMARYL4 MG PO; +CELEXA 20 MG TA20 MG PO; +CEPHALEXIN500 MG PO; +GABAPENTIN600 M1 PO; +IMDUR 60 MG TAB60 M1 PO; +ZESTRIL10 MG PO
[2021-05-11 08:40] LABS: HEMATOCRIT 33.2 % (37.0-47.0); HEMOGLOBIN 10.4 gm/dL (12.0-15.0); MCH 20.4 pg (26.0-34.0); MCHC 31.3 g/dL (28.0-37.0); MPV 8.6 fl. (7.2-11.1); RBC 5.1 mil/uL (4.20-5.00); RDW-CV 19.5 % (10.5-14.5); WBC 6.4 thou/uL (4.0-11.0)
[2021-05-11 08:55] LABS: APTT 28.3 Seconds (25.0-31.3); PROTIME 10.9 Seconds (9.20-11.50)
[2021-05-11 08:56] LABS: ALBUMIN 3.8 g/dL (3.4-5.0); ALKALINE PHOSPHATASE 111 U/L (46-116); ANION GAP 10 mmol/L (7-16); BUN 14 mg/dL (7-18); CALCIUM 8.7 mg/dL (8.5-10.1); CHLORIDE 99 mmol/L (98-107); CHOLESTEROL 251 mg/dL (<200); CO2 25 mmol/L (21-32); CREATININE 0.8 mg/dL (0.6-1.3); GLUCOSE 311 mg/dL (70-99); HDL CHOLESTEROL 36 mg/dL (>40); LDL CHOLESTEROL 175 mg/dL (<100); POTASSIUM 4.5 mmol/L (3.5-5.1); SGOT 49 U/L (15-37); SGPT 52 U/L (30-65); SODIUM 134 mmol/L (136-145); TOTAL BILIRUBIN 0.4 mg/dL (<0.1-1.0); TOTAL PROTEIN 7.8 g/dL (6.4-8.2); TRIGLYCERIDE 203 mg/dL (<150); VLDL 41 mg/dL (<40)
[2021-05-11 08:57] LABS: SERUM ASSESSMENT Clear
--- NOTE | 2021-05-11 11:10 | CARD ---
[address] [address] CARDIAC CATH REPORT Name: BIANKA LIM Room: [address] Kenny Goodman#: [id number] Admission: 05/11/21 Attend Phys: Moe Wheeler MD, Discharge: Date of : 69 Report #: [id number] THIS REPORT FOR: cc: Stephanie Medina Samantha RNP Holkins, John M. MD [facility] ~ APPROVED REPORT Study performed: 05/11/2021 08:41:28 Patient Details The patient is a 55 year-old female Event Personnel Moe Wheeler Wage And Salary Administrator, Robyn Bellamy RN RN, Gautam Grier DIRECTOR OF SOCIAL MEDIA MARKETING Monitor, Severo Galo RTR Scrub, Moe Wheeler Supervisor [employer] Procedures Performed Left heart catheterization left ventriculography selective coronary arteriography and percutaneous coronary intervention with deployment of a drug-eluting stent in the mid LAD Indication Unstable angina Risk Factors Obesity, Hypercholesterolemia, Diabetes Previous Procedures/Diagnoses Previous PCI Procedure Narrative The patient was brought electively to the Cardiac Catheterization Laboratory and was prepped and draped in a sterile manner. The right femoral was infiltrated with 2% Lidocaine subcutaneous anesthesia. A 6fr Ultimum Sheath sheath was inserted into the right femoral artery. Coronary angiography was performed using coronary diagnostic catheters. The right coronary system was accessed and visualized with a JR4 6fr catheter. The left coronary system was accessed and visualized with a JL4 6fr catheter. The left ventricle was accessed and visualized with a PC: Pig 6fr catheter. Left ventricular/Aortic Valve gradient assessed via catheter pullback. Left ventriculogram was performed in GARCIA projection. Pre-[place] [address] CARDIAC CATH REPORT Name: BIANKA LIM Room: [address]#: [id number] Admission: 05/11/21 Attend Phys: Moe Wheeler MD, Discharge: Date of : 69 Report #: [id number] was performed . Closure device was deployed with a Fr Angioseal STS 6Fr. The patient tolerated the procedure well and there were no complications associated with the procedure. There was no hematoma. Intraoperative Conscious Sedation Sedation start time: 925 Case end Time: 101 Fentanyl 25 mcg Versed 2 mg Fluoro Time: 11.2 minutes Dose: DAP 319358 cGycm2 2464 mGy Contrast Type and Amount: Omnipaque 220 ml Coronary Angiography The patient's coronary anatomy is right dominant. Diagnostic Cath Left Main 0% narrowing LAD 80% focal mid LAD in-stent restenosis Circumflex Nondominant vessel with 30% distal narrowing Right Coronary Large dominant vessel with 20% mid and distal narrowings Left Ventriculography The left ventricle is normal in size with normal contractility. The left ventricular ejection fraction is estimated to be 60%. Left ventricular wall motion abnormalities are not present. There is no mitral insufficiency. Hemodynamics The aortic pressure is 135/65 mmHg with a mean of 77 mmHg. The left ventricular pressure is 121/0 mmHg with a mean of mmHg. The left ventricular end diastolic pressure is 3 mmHg. There was no gradient across the aortic valve upon pullback. PCI Technique Lesion Anticoagulation was achieved with Angiomax. Patient was preloaded with Angiomax IV 15 ml. Percutaneous coronary intervention was performed on the mid left anterior descending artery segment. The lesion stenosis prior to intervention was 80% with YOSI 3 flow. A 6FR XB 3.5 100CM Guide Catheter was used to engage the ostium. A IG: ProwaterFlex 180CM Interventional Guidewire was [place] [address] CARDIAC CATH REPORT Name: LIMYAZMIN QUINTEROLourdes Ceja Room: [address] M.Fozia.#: [id number] Admission: 05/11/21 Attend Phys: Moe Wheeler MD, Discharge: Date of : 69 Report #: [id number] BALLOON DILATION A Balloon catheter NC Trek RX 2.25 X 8 was inserted and inflated up to 15.00atm for 17seconds. Additional Inflation: 16.00atm for 11seconds. Additional Inflation: 10.00atm for 9seconds. STENT DEPLOYMENT A stent Anderson RX Stent 2.0X18mm was inserted and inflated up to 9.00atm for 15seconds. Additional Inflation: 12.00atm for 6seconds. Additional Inflation: 14.00atm for 8seconds. POST STENT DEPLOYMENT BALLOON DILATION A Balloon catheter NC Trek RX 2.25 X 8 was inserted and inflated up to 15.00atm for 13seconds. Additional Inflation: 16.00atm for 7seconds. Final angiography reveals 0 % stenosis with YOSI 3 flow. Conclusion Significant coronary artery disease characterized by the following: A 80% focal mid LAD in-stent restenosis B 30% narrowing of the distal portion of the nondominant circumflex C dominant right coronary artery with 20% mid and distal narrowings 2. Normal left ventricular systolic function, estimated ejection fraction of 60% 3. Normal left-sided hemodynamic study 4. Successful PCI with deployment of drug-eluting stent at the site of 80% focal mid LAD in-stent restenosis with 0% residual narrowing and YOSI-3 flow to the distal vessel Recommendations Cardiac Risk Reduction Program Aggressive Medical Therapy Medications Administered Aspirin (any) [place] [address] CARDIAC CATH REPORT Name: BIANKA LIM Room: [address] M.R.#: [id number] Admission: 05/11/21 Attend Phys: Moe Wheeler MD, Discharge: Date of : 69 Report #: [id number] Prasugrel Diagnostic Cath Approved by: Moe Wheeler MD Date/Time: 05/11/2021 11:08:26 <ELECTRONICALLY SIGNED> By: Moe Wheeler MD, [facility] 05/11/21 1109 1109 [id number] Wheeler MD, [facility] /INF
--- NOTE | 2021-05-11 11:17 | EKG ---
[place] [address] ELECTROCARDIOGRAM REPORT Name: BIANKA LIM Room: [address] M.R.#: [id number] Admission: 05/11/21 Attend Phys: Marcial Choi Discharge: Date of : 69 Date of Service: 05/11/2130 Report #: [id number] THIS REPORT FOR: //name// [facility] Test Date: 2021-05-11 Test Time: 08:30:18 Pat Name: BIANKA LIM Department: Room: [facility] Gender: F Ct Scan Tech: YANELIS : 1965 Requested By: Moe Wheeler Order Number: [id number] Brandon MD: Moe Wheeler Measurements Intervals [place] Rate: 87 P: 15 WI: 193 QRS: -13 QRSD: 90 T: 11 QT: 370 QTc: 445 Interpretive Statements Sinus rhythm Inferior infarct, old Compared to ECG 05/01/2019 07:53:51 First degree AV block no longer present Myocardial infarct finding still present Electronically Signed On 05-11-2021 11:17:43 CDT by Moe Wheeler [email or web address] <ELECTRONICALLY SIGNED> By: Moe Wheeler MD, [facility] 05/11/21 1117 0830 9 Moe Wheeler MD, [facility] /EPI
--- NOTE | 2021-05-11 11:18 | EKG ---
[place] [address] ELECTROCARDIOGRAM REPORT Name: LIMBIANKA Room: [address] M.R.#: [id number] Admission: 05/11/21 Attend Phys: Marcial Choi Discharge: Date of : 69 Date of Service: 05/11/21 1101 Report #: [id number] THIS REPORT FOR: //name// [facility] Test Date: 2021-05-11 Test Time: 11:01:18 Pat Name: BIANKA LIM Department: Room: [facility] Gender: F Therapist Speech: TYLOR : 1965 Requested By: Moe Wheeler Order Number: [id number] Reading MD: Moe Wheeler Measurements Intervals [place] Rate: 80 P: 19 PA: 196 QRS: -14 QRSD: 91 T: 12 QT: 388 QTc: 448 Interpretive Statements Sinus rhythm Low voltage, precordial leads Possible inferior scar Baseline wander in lead(s) V1,V6 Compared to ECG 05/11/2021 08:30:18 Low QRS voltage now present Myocardial infarct finding persists Electronically Signed On 05-11-2021 11:18:25 CDT by Moe Wheeler [email or web address] <ELECTRONICALLY SIGNED> By: Moe Wheeler MD, [facility] 05/11/21 1118 00 00 Moe Wheeler MD, [facility] /EPI
--- NOTE | 2021-05-11 18:14 | NUR ---
PT TRANSFERRED FROM THE [facility] AT APPROX 1530. VSS AND ASSESSED PER PROTOCOL. PT IS PLEASANTLY A&OX4, SPOUSE IN ROOM WITH PT. ASSESSMENT COMPLETED. R GROIN CATH SITE IS DRY AND WITHOUTA [place] DRAINAGE OR REDDNESS. PT CONTINUES ON STRICT BEDREST UNTIL 1615. [id number] CALLI WAS DC'D AND PT UP TO BATHROOM. PT DENIES ANY PAIN ONLY MILD DISCOMFORT. NS @ 100/HR. PT UP IN BED EATING DINNER.
[2021-05-12 04:38] VITALS: BP 109/65
[2021-05-12 04:57] LABS: HEMATOCRIT 31.4 % (37.0-47.0); HEMOGLOBIN 9.5 gm/dL (12.0-15.0); MCH 20.3 pg (26.0-34.0); MCHC 30.4 g/dL (28.0-37.0); MCV 66.9 fL (80.0-100.0); MPV 8.8 fl. (7.2-11.1); RBC 4.69 mil/uL (4.20-5.00); RDW-CV 19.4 % (10.5-14.5); WBC 6.3 thou/uL (4.0-11.0)
[2021-05-12 05:30] LABS: ALBUMIN 3.4 g/dL (3.4-5.0); ALKALINE PHOSPHATASE 93 U/L (46-116); ANION GAP 6 mmol/L (7-16); BUN 13 mg/dL (7-18); CALCIUM 8.4 mg/dL (8.5-10.1); CHLORIDE 104 mmol/L (98-107); CK-MB MASS < 0.5 ng/mL (<0.5-3.6); CO2 28 mmol/L (21-32); CREATININE 0.7 mg/dL (0.6-1.3); GLUCOSE 198 mg/dL (70-99); POTASSIUM 4.2 mmol/L (3.5-5.1); SGOT 36 U/L (15-37); SGPT 45 U/L (30-65); SODIUM 138 mmol/L (136-145); TOTAL BILIRUBIN 0.3 mg/dL (<0.1-1.0); TOTAL PROTEIN 7.1 g/dL (6.4-8.2)
--- NOTE | 2021-05-12 05:50 | NUR ---
PT HAD NO EVENTS OVERNIGHT, REPORTED NO PAIN. RT GROIN SITE STILL SOFT AND PINK, NO ECCYMOSIS NOTED. FLUIDS INFUSING PER ORDER, PT IS UP AD [place] TO TOILET AND IS ANTICIPATING DISCHARGE THIS AM. CALL LIGHT WITHIN REACH FOR PT SAFETY
[2021-05-12 11:32] VITALS: BP 109/65
--- NOTE | 2021-05-12 11:53 | NUR ---
ASSUMED PT CARE AT 0730. PT IS PLEASANTLY A&OX4.PT POST CARDIAC CATH YESTERDAY. SITE WITH TRANSPARENT DRESSING, IS DRY AND INTACT. ASSESSMENT COMPLETED AND MEDICATIONS ADMINISTERED ORDERED. NEW ORDERS TO DISCHARGE TO HOME.PT VERBALIZES UNDERSTANDING OF DISCAHRGE ORDERS. SPOUSE HERE TO TRANSPORT TO HOME AT APPROX.1200. HEART MONITOR AND IV DC'D. ALL BELONGINGS WITH PT.
--- NOTE | 2021-05-12 16:23 | EKG ---
[place] [address] ELECTROCARDIOGRAM REPORT Name: LIM,CHANNIKA Ceja Room: [address] M.R.#: [id number] Admission: 05/11/21 Attend Phys: Marcial Chio Discharge: 05/12/21 Date of : 69 Date of Service: 05/12/21 1056 Report #: [id number] THIS REPORT FOR: //name// [facility] Test Date: 2021-05-12 Test Time: 10:56:34 Pat Name: BIANKA LIM Department: Room: [facility] Gender: F Bsa Officer: SHAHZAD : 1965 Requested By: Moe Wheeler Order Number: [id number] Reading MD: Moe Wheeler Measurements Intervals [place] Rate: 63 P: 23 VA: 208 QRS: -12 QRSD: 96 T: 12 QT: 443 QTc: 454 Interpretive Statements Sinus rhythm Borderline prolonged VA interval Low voltage, precordial leads Abnormal R-wave progression, early transition Compared to ECG 05/11/2021 11:01:18 No significant changes Electronically Signed On 05-12-2021 16:23:24 CDT by Moe Wheeler [email or web address] <ELECTRONICALLY SIGNED> By: Moe Wheeler MD, FAC 05/12/21 1623 1056 1056 Moe Wheeler MD, [facility] /EPI
--- NOTE | 2021-05-13 09:10 | D ---
[address] [address] DISCHARGE SUMMARY Name: BIANKA LIM Room: [address] Kenny Goodman#: [id number] Admission: 05/11/21 Attend Phys: Moe Wheeler MD, Discharge: 05/12/21 Date of : 69 Report #: [id number] THIS REPORT FOR: cc: Stephanie Medina Samantha RNP Holkins,Moe Walker MD [facility] ~ DATE OF DISCHARGE: 05/12/2021 The patient discharged from room 224 on 05/12/2021. FINAL DISCHARGE DIAGNOSES: 1. Unstable angina. 2. Coronary artery disease. 3. Status post PCI with stenting of the mid LAD. 4. Hyperlipidemia. 5. Diabetes. 6. Exogenous obesity. PROCEDURE: On 05/11/2021 -- left heart catheterization, left ventriculography, selective coronary arteriography, and percutaneous coronary intervention with deployment of drug-eluting stent at the site of 80% mid LAD in-stent restenosis. HOSPITAL COURSE: The patient is a very pleasant 55-year-old female with complex and aggressive coronary artery disease. She has underlying diabetes and hyperlipidemia. Recently, she has noted increasing episodes of chest discomfort with concomitant dyspnea, brought on by exertion. They are relieved by rest. She has not been using nitroglycerin. Given her risk factor profile and known coronary artery disease, status post multiple PCIs and recent clinical history, I recommended proceeding with cardiac catheterization, which was undertaken on 05/11/2021. That study revealed 80% mid LAD in-stent restenosis. There were no significant stenosis of the left main, circumflex and right coronary artery. I deployed one Anderson drug-eluting stent in the mid LAD with 0% residual narrowing and YOSI 3 flow to the distal vessel. The patient did well post-procedurally and did not experience chest discomfort. High sensitive troponin was within the normal reference range at 4. Sodium 138, potassium 4.2, BUN 13, creatinine 0.7, glucose 198. Hemoglobin 9.5, white blood cell count 6300 with 208,000 platelets. Cholesterol 251; HDL 36, LDL 175 (the patient is statin intolerant), triglycerides 203 mg percent. The patient ambulated in the hallways without difficulty and there was good hemostasis at the right [place] [address] DISCHARGE SUMMARY Name: LIMBIANKA Room: [address] Maxine#: [id number] Admission: 05/11/21 Attend Phys: Moe Wheeler MD, Discharge: 05/12/21 Date of : 69 Report #: [id number] She was discharged home on the following medications: Aspirin 81 mg 2 tablets daily, metformin 500 mg tablets and 1000 mg p.o. b.i.d. to be resumed on 05/13/2021; omeprazole 20 mg daily; metoprolol succinate 25 mg daily; prasugrel or Effient 10 mg daily with 30 mg periprocedural dose having been given; Keflex 500 mg b.i.d.; Celexa 20 mg daily; gabapentin 600 mg b.i.d.; glimepiride 4 mg daily; Imdur 60 mg daily and lisinopril 10 mg daily. I will plan to see the patient in followup on 06/23 that has been scheduled. We suggested participation in cardiac rehabilitation. Therefore, the patient is discharged home in stable condition on the aforementioned medications with followup as described above. <ELECTRONICALLY SIGNED> By: Moe Wheeler MD, FAC 05/13/21 0910 1002 1109Joileana Wheeler MD, FAC /nt
== END 2021-05-12 12:00 | disposition home or self-care (01) ==
LOC: M.CL 07:06 → M.TBA-CV 10:27 → M.2W 15:00
PROVIDERS: ADMIT Internal Medicine; ATTEND Internal Medicine
DX: I25.110 Atherosclerotic heart disease of native coronary artery with unstable angina pectoris (principal); Z20.822 Contact with and (suspected) exposure to COVID-19; E11.9 Type 2 diabetes mellitus without complications; E78.5 Hyperlipidemia, unspecified; E66.09 Other obesity due to excess calories; Z68.33 Body mass index [BMI] 33.0-33.9, adult; Z88.6 Allergy status to analgesic agent; Z88.8 Allergy status to other drugs, medicaments and biological substances; Z79.899 Other long term (current) drug therapy